=== PATIENT | male | born 1960 | race Caucasian/White ===

== ENCOUNTER → 2021-03-20 | Outpatient (CLI) | payer BC ==
[2021-03-20 10:26] LABS: Basophils # (A) 0.1 k/uL (0-0.2); Basophils % (A) 1 %; Eosinophils # (A) 0.1 k/uL (0-0.7); Eosinophils % (A) 2 %; HCT 42.1 % (39.0-53.0); HGB 14.4 gm/dL (13.0-17.5); Lymphocytes # (A) 1.8 k/uL (1.0-4.8); Lymphocytes % (A) 32 %; MCH 30.8 pg (25.0-35.0); MCHC 34.3 g/dL (31.0-37.0); Mean Platelet Volume 7.5; Monocytes # (A) 0.4 k/uL (0-1.0); Monocytes % (A) 8 %; Neutrophils # (A) 2.9 k/uL (1.3-7.7); Neutrophils % (A) 53 %; Platelet Count 219 k/uL (150-450); RBC 4.68 m/uL (4.30-5.90); RDW 13.7 % (11.5-15.5); WBC 5.4 k/uL (3.8-10.6)
[2021-03-20 10:33] LABS: INR 1.1 (<1.2); Prothrombin Time 11.2 sec (9.0-12.0)
[2021-03-20 11:07] LABS: Potassium 4.4 mmol/L (3.5-5.1)
--- NOTE | 2021-03-20 12:23 | XR ---
EXAMINATION TYPE: XR chest 2V DATE OF EXAM: 03/20/2021 COMPARISON: Chest x-ray 02/03/2012 HISTORY: Z01.818 TECHNIQUE: Frontal and lateral views of the chest are obtained. FINDINGS: There is no focal air space opacity, pleural effusion, or pneumothorax seen. The cardiac silhouette size is within normal limits. The osseous structures are intact. IMPRESSION: No acute cardiopulmonary process.
== END | disposition home or self-care (01) ==
LOC: LABPAT 09:35
PROVIDERS: ATTEND Orthopaedic Surgery
DX: Z01.812 Encounter for preprocedural laboratory examination (principal); Z22.322 Carrier or suspected carrier of Methicillin resistant Staphylococcus aureus; M17.11 Unilateral primary osteoarthritis, right knee
CPT/HCPCS: 71046; 80051; 85025; 85610; 87070; 93005

== ENCOUNTER → 2021-05-07 | Outpatient (CLI) | payer BC ==
[2021-05-07 23:04] LABS: HCT 40.7 % (39.6-50.0); HGB 13.7 g/dL (13.0-17.0); MCH 29.9 pg (27.0-32.0); MCHC 33.7 g/dL (32.0-37.0); MCV 88.9 fL (80.0-97.0); Mean Platelet Volume 10.7 fL (9.5-12.2); Platelet Count 212 X 10*3/uL (140-440); RBC 4.58 X 10*6/uL (4.40-5.60); WBC 6.08 X 10*3/uL (4.50-10.00)
[2021-05-07 23:56] LABS: African American GFR (CKD) 84.8 (60.0-200.0); Anion Gap 11.7 mmol/L (10.00-18.00); Blood Urea Nitrogen 19.5 mg/dL (9.0-27.0); Carbon Dioxide 26.3 mmol/L (20.0-27.5); Non-African American GFR(CKD) 73.2 (60.0-200.0); Potassium 4.7 mmol/L (3.5-5.5)
== END | disposition home or self-care (01) ==
LOC: LABPAT 15:25
PROVIDERS: ATTEND Internal Medicine Cardiovascular Disease
DX: Z01.812 Encounter for preprocedural laboratory examination (principal); Z20.822 Contact with and (suspected) exposure to COVID-19
CPT/HCPCS: 80051; 82565; 84520; 85027; U0003; C9803

== ENCOUNTER 2021-05-11 08:44 | Day surgery (SDC) | payer BC ==
[2021-05-05 16:04] VITALS: BMI 32.5
[~2021-05-11 08:44] MED LIST: ALPRAZolam 0.25 MG TAB PO PRN; ALPRAZolam 0.5 MG TAB PO PRN; ASPIRIN 325 MG TAB PO ONE; HEPARIN SODIUM,PORCINE 10,000 UNIT in SODIUM CHLORIDE 0.9% 1,000 ML IRRIGATION PRN; HEPARIN SODIUM,PORCINE 2,500 UNIT in SODIUM CHLORIDE 0.9% 250 ML IRRIGATION PRN; NITROGLYCERIN SL TABS 0.4 MG TAB SUBLINGUAL PRN; SODIUM CHLORIDE 0.9% 1,000 ML in EMPTY BAG 1 BAG IV SCH
[2021-05-11 09:03] VITALS: RESP 18; TEMP 97.3
[2021-05-11] MEDS ORDERED: LIDOCAINE 1% INJ 10MG/ML (20 ML MDV) ONE (10:15)
[2021-05-11] MEDS ORDERED: VERAPAMIL 2.5 MG/ML 2 ML AMP ONE (10:15)
[2021-05-11] MEDS ORDERED: fentaNYL (PF) 50 MCG/ML 2 ML AMP ONE (10:15)
[2021-05-11] MEDS ORDERED: fentaNYL (PF) 50 MCG/ML 2 ML AMP IVP ONE (10:35)
[2021-05-11] MEDS ORDERED: MIDAZOLAM 2 MG/2 ML VIAL IVP ONE (10:35)
[2021-05-11] MEDS ORDERED: LIDOCAINE 1% INJ 10MG/ML (20 ML MDV) SQ ONE (10:40)
[2021-05-11] MEDS ORDERED: VERAPAMIL SYRINGE (5 MG/10 ML) INTRAARTER ONE (10:43)
[2021-05-11] MEDS ORDERED: HEPARIN SODIUM 1,000 UN/ML (10ML VL) ONE (10:44)
[2021-05-11] MEDS ORDERED: HEPARIN SODIUM 1,000 UN/ML (10ML VL) IVP ONE (10:45)
[2021-05-11] MEDS ORDERED: IOPAMIDOL-370 125ML BTL INJ ONE (10:51)
[2021-05-11] MEDS ORDERED: RX INFO: IV CONTRAST WAS GIVEN 1 EACH MISC MISCELLANE PRN (11:20)
[2021-05-11] MEDS ORDERED: SODIUM CHLORIDE 0.9% 1,000 ML IV SCH (11:30)
--- NOTE | 2021-05-11 13:10 | CC ---
CARDIAC CATHETERIZATION REPORT INDICATION: New-onset dilated cardiomyopathy. PROCEDURE NOTE: After obtaining informed consent, left heart catheterization and coronary angiogram were performed via the right radial artery using size 3.5 Romel right and left coronary catheters and a pigtail catheter. Patient tolerated the procedure well without any obvious immediate complications. Right radial artery access was obtained using micropuncture technique. Catheters and wires were floated into the ascending aorta under fluoroscopic guidance. Patient received verapamil and intravenous heparin as per protocol. Patient received moderate conscious sedation. Total sedation time was 15 minutes. At the end of the procedure, a TR band was applied for hemostasis as per protocol. Adequate hemostasis and pulse ox were obtained. FINDINGS: HEMODYNAMICS: Left ventricular end-diastolic pressure is 16 mm. There is a gradient of 5 mm across the valve. LEFT VENTRICULOGRAM: Left ventriculogram was not performed. ANGIOGRAPHIC DATA: Left main coronary artery. Left main coronary artery is a normal-sized vessel and is free of stenosis. It divides into left anterior descending coronary artery and circumflex coronary artery. LAD and its branches, circumflex coronary artery and its branches are free of significant stenosis. Circumflex coronary artery is a codominant vessel. Right coronary artery. Right coronary artery is a codominant system and is free of significant disease. CONCLUSIONS: 1. Normal coronary arteries. 2. Mildly elevated left ventricular end-diastolic pressures. PLAN: Patient's management is going to be with optimal medical therapy. He is already on MIRZA inhibitors. I will add Toprol-XL 25 mg daily. MMODL / IJN: [id number] /
[2021-05-11 15:16] VITALS: BP 158/74; PULSE 74
== END 2021-05-11 15:10 | disposition home or self-care (01) ==
LOC: CATHCVL 08:44
PROVIDERS: ATTEND Internal Medicine Cardiovascular Disease
DX: I42.0 Dilated cardiomyopathy (principal)
CPT/HCPCS: 93458; C1894; J2250; J2001; J3010; J1644; Q9967

== ENCOUNTER → 2021-12-22 | Outpatient (CLI) | payer BC | END | disposition home or self-care (01) | LOC: LABPAT 10:11 | PROVIDERS: ATTEND Orthopaedic Surgery | DX: Z01.812 Encounter for preprocedural laboratory examination (principal); Z22.322 Carrier or suspected carrier of Methicillin resistant Staphylococcus aureus; M17.11 Unilateral primary osteoarthritis, right knee | CPT/HCPCS: 87070 ==

== ENCOUNTER 2022-01-21 08:21 | Observation (INO) | payer BC ==
--- NOTE | 2022-01-20 12:10 | P.HPOR ---
History of Present Illness H&P Date: 01/20/22 Chief Complaint: Right knee pain The patient is a 61-year-old male who presents with progressive right knee pain for the past several years worsening recently. He notes swelling, stiffness, and giving way. It is worse with weightbearing activities. He tried previous medications and injections with only partial temporary relief. He is having significant night symptoms. Review of Systems As per HPI Past Medical History Past Medical History: Asthma, COPD, Hyperlipidemia, Hypertension, Osteoarthritis (OA) Additional Past Medical History / Comment(s): Heart diseaseleft bundle branch block History of Any Multi-Drug Resistant Organisms: None Reported Past Surgical History: Heart Catheterization, Orthopedic Surgery Additional Past Surgical History / Comment(s): rt hand trigger thumb, rt carpal tunnel, lump removed from neck, ganglion cyst removed right foot Past Anesthesia/Blood Transfusion Reactions: No Reported Reaction Smoking Status: Former smoker - Past Family History Mother Family Medical History: No Reported History Medications and Allergies Home Medications Medication Instructions Recorded Confirmed Type Albuterol Inhaler [Ventolin 2 puff INHALATION Q6HR PRN 10/19/13 01/20/22 History Inhaler] Ipratropium/Albuterol Sulfate 3 ml INHALATION QID PRN 10/19/13 01/20/22 History [Duoneb 0.5 mg-3 mg/3 ml Soln] lisinopriL [Zestril] 10 mg PO HS 10/19/13 01/20/22 History EPINEPHrine [Epipen 2-Melchor] 0.3 mg IM ONCE PRN #1 ml 10/20/13 01/20/22 Rx Atorvastatin [Lipitor] 20 mg PO HS 04/07/21 01/20/22 History Desvenlafaxine Succinate [Pristiq] 100 mg PO DAILY 04/07/21 01/20/22 History QUEtiapine [SEROquel] 100 mg PO HS 04/07/21 01/20/22 History buPROPion HCL [Wellbutrin XL] 300 mg PO DAILY 04/07/21 01/20/22 History Allergies Allergy/AdvReac Type Severity Reaction Status Date / Time amlodipine besylate Allergy Unknown Verified 01/20/22 10:20 [From Master] budesonide [From Pulmicort] Allergy Unknown Verified 01/20/22 10:20 dyclonine HCl [From Sucrets] Allergy shortness Verified 01/20/22 10:20 of breath hexylresorcinol Allergy Unknown Verified 01/20/22 10:20 [From Sucrets] olmesartan medoxomil Allergy Unknown Verified 01/20/22 10:20 [From Master] penicillin V potassium Allergy Unknown Verified 01/20/22 10:20 [From Pen-Vee K] Childhood venom-honey bee Allergy Unknown Verified 01/20/22 10:20 [bee venom (honey bee)] Physical Examination - Knee right Appearance: effusion Effusion grade: grade 1 Varus alignment in stance: 5 degrees Tenderness with palpation: medial Pain: with flexion Gait: limping ROM: extension: -20 degrees ROM: flexion: 90 degrees Strength: extension: 5/5 Strength: flexion: 5/5 Meniscal tests: medial meniscal tests: positive Results The patient is a 61-year-old male who is well-developed and well-nourished, approximate 5 foot 8, 214 pounds of endomorphic habits. HEENT exam is nonfocal, neck is supple. He has painless passive motion of the right hip. Straight leg raise negative. His distal neurovascular appears intact in the right lower extremity. - Diagnostic results Knee x-ray: image reviewed (3 views of the right knee obtained in the office show severe medial and patellofemoral compartment narrowing with [id number] changes and subchondral sclerosis.) Assessment and Plan Assessment: Right knee severe medial and patellofemoral compartment osteoarthrosis Plan: I talked the patient length regarding his condition, treatment options. At this point is quite limited because of pain related to his right knee has significant pain related to his right knee osteoarthrosis despite conservative measures. After a thorough discussion he opted to proceed with surgery. We'll plan to proceed with right total knee arthroplasty. We will institute DVT prophylaxis postoperative. The patient underwent preoperative medical and cardiac clearance. Time with Patient: Less than 30
[~2022-01-21 08:21] MED LIST changes: +ACETAMINOPHEN TAB 500 MG TAB PO PRN; -ALPRAZolam 0.25 MG TAB PO PRN; -ALPRAZolam 0.5 MG TAB PO PRN; -ASPIRIN 325 MG TAB PO ONE; -HEPARIN SODIUM,PORCINE 10,000 UNIT in SODIUM CHLORIDE 0.9% 1,000 ML IRRIGATION PRN; -HEPARIN SODIUM,PORCINE 2,500 UNIT in SODIUM CHLORIDE 0.9% 250 ML IRRIGATION PRN; +MELOXICAM 7.5 MG TAB PO PRN; +MIDAZOLAM 2 MG/2 ML VIAL IV PRN; -NITROGLYCERIN SL TABS 0.4 MG TAB SUBLINGUAL PRN; +ONDANSETRON 4 MG/2 ML VIAL IVP ONE; +SCOPOLAMINE 1 MG/72 HR PATCH TRANSDERM ONE; -SODIUM CHLORIDE 0.9% 1,000 ML in EMPTY BAG 1 BAG IV SCH; +TRANEXAMIC ACID IN NACL,ISO-OS 1,000 MG in SALINE 1 100ML.BAG IVPB PRN
[2022-01-21] MEDS: LACTATED RINGERS 1,000 ML IV SCH (09:32)
[2022-01-21] MEDS ORDERED: DEXAMETHASONE SOD PHOSPHATE 4 MG/ML 1 ML VIAL IVP ONE (09:35)
[2022-01-21] MEDS ORDERED: SODIUM CHLORIDE 0.9% (PF) 10 ML VIAL ONE (10:35)
[2022-01-21] MEDS ORDERED: MIDAZOLAM 2 MG/2 ML VIAL ONE (10:35)
[2022-01-21] MEDS ORDERED: TRANEXAMIC ACID IN NACL,ISO-OS 1,000 MG/100 ML BAG ONE (10:35)
[2022-01-21] MEDS ORDERED: PROPOFOL 10 MG/ML 20 ML VIAL IV ONE (10:35)
[2022-01-21] MEDS ORDERED: ROPIVACAINE 5 MG/ML 30 ML VIAL ONE (10:35)
--- NOTE | 2022-01-21 11:20 | P.ANPRN ---
Procedure Note - Anesthesia - Nerve Block Performed Right Adductor Canal Infusion Time Out Performed: Yes (0945) Date of Procedure: 01/21/22 Procedure Start Time: 09:46 Procedure Stop Time: 09:51 Location of Patient: PreOp Indication: Acute Post-Operative Pain, Requested by Surgeon Specifically requested for management of pain by : Abelino Gil Sedation Type: Sedate with meaningful contact maintained Preparation: Sterile Prep, Sterile Dressing Position: Supine Catheter Depth at Skin (cm): 8 Catheter: Indwelling Needle Types: Jaclyn Needle Gauge: 18 Ultrasound used to visualize needle placement: Yes Ultrasound used to observe medication spread: Yes Injectate: 0.5% Ropivacaine (see comment for volume) (15cc + 5cc nacl pf) Blood Aspirated: No Pain Paresthesia on Injection Noted: No Resistance on Injection: Normal Image Stored and Saved: Yes Events: Uneventful and Well Tolerated
--- NOTE | 2022-01-21 11:21 | P.ANPRN ---
Procedure Note - Anesthesia - Nerve Block Performed Right iPack Single Time Out Performed: Yes (0945) Date of Procedure: 01/21/22 Procedure Start Time: 09:52 Procedure Stop Time: 09:55 Location of Patient: PreOp Indication: Acute Post-Operative Pain, Requested by Surgeon Specifically requested for management of pain by DrCelina: Abelino Gil Sedation Type: Sedate with meaningful contact maintained Preparation: Sterile Prep Position: Supine Catheter: None Needle Types: Pajunk Needle Gauge: 21 Ultrasound used to visualize needle placement: Yes Ultrasound used to observe medication spread: Yes Injectate: 0.5% Ropivacaine (see comment for volume) (15cc + 5cc nacl pf) Blood Aspirated: No Pain Paresthesia on Injection Noted: No Resistance on Injection: Normal Image Stored and Saved: Yes Events: Uneventful and Well Tolerated
[2022-01-21] MEDS ORDERED: ceFAZolin 1,000 MG in SODIUM CHLORIDE 0.9% 1,000 ML IRRIGATION ONE (11:25)
[2022-01-21] MEDS ORDERED: HYDROcodone/APAP 5-325MG 1 EACH TAB PO PRN (12:23)
[2022-01-21] MEDS ORDERED: NALOXONE 0.4 MG/ML 1 ML VIAL IV PRN (12:23)
[2022-01-21] MEDS ORDERED: HYDROmorphone 0.5 MG/0.5 ML SYRINGE IVP PRN (12:23)
--- NOTE | 2022-01-21 12:42 | P.OP ---
Date of Procedure: 01/21/22 Preoperative Diagnosis: Right knee severe tricompartmental osteoarthrosis Postoperative Diagnosis: Same Procedure(s) Performed: Right total knee arthroplastycementedcruciate retaining Implants: Depuy Attune size 7 cemented femoral component, size 6 cemented tibial component, 9 mm articular surface, 38 mm cemented patellar component. This is a cruciate retaining implant. Anesthesia: regional, spinal Surgeon: Abelino Gil Square Dance Caller #1: Tyrese Minaya Estimated Blood Loss (ml): 50 Pathology: other (Bone fragments) Condition: stable Disposition: PACU Indications for Procedure: The patient is a 61-year-old male presents with progressive right knee pain secondary to osteoarthrosis despite conservative measures. A discussion of the risks and benefits of operative intervention versus continued conservative measures was made with the patient. He opted to proceed with surgery. Operative risks to include infection, neurovascular injury, development of blood clots, fracture, possible component loosening/failure need for subsequent procedures was discussed. Informed consent was obtained. Operative Findings: As below Description of Procedure: The patient was brought to the operating room, and after induction of spinal anesthesia the right lower extremity was prepped and draped in a normal fashion. The tourniquet was inflated to 270 mmHg. A longitudinal incision extending 3 finger breaths above the superior pole of the patella extending to the medial aspect the tibial tubercle was then made. The skin and subcutaneous tissues were divided sharply. Electrocautery was used for hemostasis. A medial parapatellar arthrotomy was then performed. The medial soft tissues to include the superficial and deep portions of the medial collateral ligament as well as the medial hamstring tendons were elevated subperiosteally. The proximal medial tibia osteophytes were carefully removed. The patella was everted. The knee was flexed. A portion of the retropatellar fat pad was excised sharply. The anterior cruciate ligament was sacrificed. A starting hole was made in the distal femur 1 cm anterior to the posterior cruciate origin. An intramedullary femoral guide was gently inserted planning on 5 valgus distal cut with 9 mm distal resection. The cutting block was pinned in place. The distal cut was then made. The posterior referencing sizing guide was utilized. 3 of external rotation was built into the system and verified off the trans- epicondylar axis and the posterior condyles. I felt size 7 was most appropriate. The cutting block was pinned in place. The anterior, posterior, and chamfer cuts were then made. The bone fragments were removed. A sulcus cut was then made with the appropriate guide. The trial size 7 femoral component was then placed and was fully seated. There was good anterior to posterior and medial to lateral fit. The distal peg holes were then drilled. The trial component was then removed. Attention was then paid towards preparing the proximal tibia. An extra medullary guide was utilized in line with the tibial shaft and second metatarsal distally. A 7 posterior slope was planned. I planned on 2 mm resection from the medial compartment. The cutting block was pinned in place. The proximal tibial cut was then made. The bone was removed in one fragment. The remnants of the medial and lateral menisci were excised the capsule junction with electrocautery. The tibia sized most appropriately at size 6. The posterior osteophytes off the distal femur were carefully removed with a curved osteotome. The trial tibial and femoral components were placed along with a 9 millimeters articular surface. I was able to obtain full flexion and extension with good stability with varus and valgus stress. After several flexion and extension cycles, the tibial rotation was marked with electrocautery in line with the medial one third of the tibial tubercle. Attention was then paid towards preparing the patella. A patella reamer was utilized taking this down to 14 mm of bone stock. A good flush cut was made. The patella sized most appropriately at 38 millimeters. The peg holes were then drilled. The trial component was placed. The knee was taken through a range of motion. I had good patellofemoral tracking with no hands technique. The trial components were then removed. The tibia was prepared in the appropriate rotation with appropriate drill and keel punch. The flexion and extension gaps were checked and felt to be symmetric. The posterior soft tissues were injected with ropivacaine. The bony surfaces were prepared with pulsatile lavage and dried. The deep tibial component was then cemented in place and was fully seated. Excess cement was removed. The femoral component was cemented in place and was fully seated. Again excess cement was removed. The trial 9 millimeters surface was then inserted in the knee was put in full extension. The patella component was cemented in place. After the cement had sufficiently hardened, the knee was again taken through a range of motion. Again there was good stability in flexion and extension with varus and valgus stress. The trial articular surface was then removed. The final articular surface was placed and was impacted. Care was taken to avoid any soft tissue interposition. Pulsatile lavage was again utilized. The tourniquet was deflated with approximately 60 minutes total tourniquet time. There was minimal drainage therefore a deep drain was not placed. The medial parapatellar arthrotomy was then closed with #2 Ethibond suture. The subcutaneous tissues were reapproximated interrupted 2-0 Vicryl sutures. The skin was reapproximated with 3-0 subarticular strata fix suture. Skin tape and adhesive was applied. A sterile dressing was applied. The patient was then awoken from sedation and transferred to recovery room in good condition. Blood loss was estimated at 50 milliliters. No complications were incurred. Sponge and needle counts were correct at the end the case. Tyrese ELIZABETH assisted during the major components this case to include exposure, bone resection, and implantation.
[2022-01-21] MEDS ORDERED: ROPIVACAINE 1,100 MG, SODIUM CHLORIDE 0.9% 500 ML 330 ML, EMPTY PAIN BALL 1 EACH MISCELLANE PRN ×2 (12:55)
--- NOTE | 2022-01-21 13:27 | XR ---
Right knee Limited HISTORY: Status post right knee arthroplasty 2 views the right knee, correlation to prior right knee 12/22/2021 Bone mineralization is reduced. Patient is status post right knee arthroplasty. There is anatomic ali gnment. Lucencies present within the soft tissues. There is soft tissue swelling. Prepatellar calcifi c density is again noted. Enthesophyte at insertion of the quadriceps tendon is stable. IMPRESSION: Orthopedic follow-up.
[2022-01-21] MEDS: HYDROmorphone 0.5 MG/0.5 ML SYRINGE IVP PRN ×4 (14:10→16:03)
[2022-01-21] MEDS ORDERED: LACTATED RINGERS 1,000 ML IV ONE ×2 (15:00)
[2022-01-21] MEDS: HYDROcodone/APAP 7.5-325MG 1 EACH TAB PO PRN (16:44)
[2022-01-21] MEDS: HYDROmorphone 1 MG/ML 1 ML SYRINGE IVP PRN ×2 (17:46→20:32)
[2022-01-21] MEDS ORDERED: ONDANSETRON 4 MG/2 ML VIAL IVP STA (20:38)
[2022-01-21] MEDS ORDERED: SENNOSIDES-DOCUSATE SODIUM 1 EACH TAB PO SCH (21:00)
[2022-01-21 22:03] VITALS: RESP 16
[2022-01-21] MEDS ORDERED: IPRATROPIUM-ALBUTEROL 3 ML NEB INHALATION PRN (22:34)
--- NOTE | 2022-01-21 22:35 | P.CONS ---
History of Present Illness - Reason for Consult Consult date: 01/21/22 - History of Present Illness The patient is a 61-year-old male with a PMH of COPD, hypertension, hyperlipidemia, and osteoarthritis who was admitted for an elective right total knee replacement. The patient underwent the procedure earlier today with no immediate postoperative consultations. The patient was seen at the bedside on the surgical unit. He reported good control of his pain, rated at a 3 out of 10 at the time of interview. He denied any additional complaints. Reports that he has not gotten out of bed as of yet and has not had a bowel movement or passed status. Did report an episode of nausea which was alleviated with Zofran. Denies experiencing chest discomfort, sore throat, shortness of breath, fever, chills, cough. Reports compliance with his medications at home. Review of systems: Pertinent positives and negatives as discussed in HPI, a complete review of systems was performed and all other systems are negative. Physical examination: General: non toxic, no distress, appears at stated age, obese Derm: no unusual rashes/lesions, warm Head: atraumatic, normocephalic, symmetric Eyes: EOMI, no lid lag, anicteric sclera, pupils equal round reactive to light ENT: Nose and ears atraumatic Neck: No cervical lymphadenopathy, trachea midline, supple Mouth: no lip lesion, mucus membranes moist Cardiovascular: S1S2 reg, no murmur, positive dorsalis pedis pulse bilateral, no edema Lungs: CTA bilateral, no rhonchi, no rales, no accessory muscle use Abdominal: soft, nontender to palpation, no guarding Ext: muscle strength 5 out of 5 in all extremities grossly except right lower extremity due to pain, right lower extremity Shiv bandage in place, no gross muscle atrophy, no contractures, Neuro: CN II-XI grossly intact, no gross focal neuro deficits Psych: Alert, oriented, appropriate affect Assessment/plan Chronic conditions: COPD, hypertension, hyperlipidemia -Continue with home medications Status post right total knee replacement -Defer management including pain control and DVT prophylaxis to the primary surgery service We appreciate this opportunity to be involved in this patient's care. We will follow the patient with you. For any further questions, please not hesitate to contact the sound inpatient team. Past Medical History Past Medical History: Asthma, COPD, Hyperlipidemia, Hypertension, Osteoarthritis (OA) Additional Past Medical History / Comment(s): Heart diseaseleft bundle branch block History of Any Multi-Drug Resistant Organisms: None Reported Past Surgical History: Heart Catheterization, Orthopedic Surgery Additional Past Surgical History / Comment(s): rt hand trigger thumb, rt carpal tunnel, lump removed from neck, ganglion cyst removed right foot Past Anesthesia/Blood Transfusion Reactions: No Reported Reaction Past Psychological History: Depression Smoking Status: Former smoker Past Alcohol Use History: Occasional Additional Past Alcohol Use History / Comment(s): quit smoking 10 years ago, 1ppd, started in teens Past Drug Use History: None Reported - Past Family History Mother Family Medical History: Hyperlipidemia Medications and Allergies Home Medications Medication Instructions Recorded Confirmed Type Albuterol Inhaler [Ventolin 2 puff INHALATION Q6HR PRN 10/19/13 01/21/22 History Inhaler] Ipratropium/Albuterol Sulfate 3 ml INHALATION QID PRN 10/19/13 01/21/22 History [Duoneb 0.5 mg-3 mg/3 ml Soln] lisinopriL [Zestril] 10 mg PO HS 10/19/13 01/21/22 History EPINEPHrine [Epipen 2-Melchor] 0.3 mg IM ONCE PRN #1 ml 10/20/13 01/21/22 Rx Atorvastatin [Lipitor] 20 mg PO HS 04/07/21 01/21/22 History Desvenlafaxine Succinate [Pristiq] 100 mg PO DAILY 04/07/21 01/21/22 History QUEtiapine [SEROquel] 100 mg PO HS 04/07/21 01/21/22 History buPROPion HCL [Wellbutrin XL] 300 mg PO DAILY 04/07/21 01/21/22 History Allergies Allergy/AdvReac Type Severity Reaction Status Date / Time amlodipine besylate Allergy Unknown Verified 01/21/22 08:54 [From Master] budesonide [From Pulmicort] Allergy Unknown Verified 01/21/22 08:54 dyclonine HCl [From Sucrets] Allergy shortness Verified 01/21/22 08:54 of breath hexylresorcinol Allergy Unknown Verified 01/21/22 08:54 [From Sucrets] olmesartan medoxomil Allergy Unknown Verified 01/21/22 08:54 [From Master] penicillin V potassium Allergy Unknown Verified 01/21/22 08:54 [From Pen-Vee K] Childhood venom-honey bee Allergy Unknown Verified 01/21/22 08:54 [bee venom (honey bee)] Physical Exam Vitals: Vital Signs Temp Pulse Pulse Pulse Resp BP BP 01/21/22 18:14 88 163/80 01/21/22 17:19 97.5 F L 97 17 182/95 01/21/22 16:55 72 16 165/84 01/21/22 16:40 92 18 185/85 01/21/22 16:00 77 16 149/90 01/21/22 15:30 75 16 149/104 01/21/22 15:00 72 16 162/78 01/21/22 14:30 77 18 161/77 01/21/22 14:00 78 20 164/76 01/21/22 13:30 61 16 156/83 01/21/22 13:15 60 12 147/84 01/21/22 13:00 75 16 147/81 01/21/22 12:42 96.8 F L 65 14 142/91 01/21/22 10:00 76 16 136/71 01/21/22 09:32 97.4 F L 87 16 174/91 Pulse Ox 01/21/22 18:14 01/21/22 17:19 95 01/21/22 16:55 96 01/21/22 16:40 98 01/21/22 16:00 97 01/21/22 15:30 95 01/21/22 15:00 95 01/21/22 14:30 98 01/21/22 14:00 99 01/21/22 13:30 99 01/21/22 13:15 98 01/21/22 13:00 99 01/21/22 12:42 100 01/21/22 10:00 98 01/21/22 09:32 98 Intake and Output 01/21/22 01/21/22 01/21/22 06:59 14:59 22:59 Intake Total 851 350 Output Total 50 400 Balance 801 -50 Intake: IV 851 350 Output: Urine 400 Estimated Blood Loss 50 Other: # Voids 1 Weight 94.6 kg 94.6 kg
[2022-01-22] MEDS: HYDROmorphone 1 MG/ML 1 ML SYRINGE IVP PRN ×2 (00:42→10:41)
[2022-01-22] MEDS: LACTATED RINGERS 1,000 ML IV SCH (07:52)
[2022-01-22] MEDS: HYDROcodone/APAP 7.5-325MG 1 EACH TAB PO PRN (07:56)
[2022-01-22 08:30] VITALS: BP 166/91; TEMP 98.6
[2022-01-22 08:54] LABS: HCT 38.4 % (39.6-50.0); MCH 30.1 pg (27.0-32.0); MCHC 33.9 g/dL (32.0-37.0); MCV 88.9 fL (80.0-97.0); Mean Platelet Volume 10.3 fL (9.5-12.2); NRBC Per 100 WBC 0 /100 WBCS (0.0-0.0); Platelet Count 253 X 10*3/uL (140-440); RBC 4.32 X 10*6/uL (4.40-5.60); RDW 13.3 % (11.5-14.5); WBC 13.99 X 10*3/uL (4.50-10.00)
--- NOTE | 2022-01-22 08:57 | P.PN ---
Subjective Progress Note Date: 01/22/22 Principal diagnosis: Right knee osteoarthritis Patient was seen at bedside this morning resting comfortably in bed. Patient says he has not worked with physical therapy yet today. Patient says he would like to go home today and has his at home that can help him out. Patient says he does have a walker for home. Patient says he does have pain mostly located at the front and back of the knee currently. Patient denies radiation of pain. Patient says he has urinated several times since surgery yesterday. Patient says he has not had bowel movement yet, however, patient says he has been passing gas. Patient denies chest pain, fever, chest breath, nausea, vomiting, change in vision, loss of bowel/bladder control. Objective - Vital Signs Vital signs: Vital Signs Temp 98.6 F 01/22/22 08:00 Pulse 80 01/22/22 08:00 Resp 16 01/22/22 08:00 BP 166/91 01/22/22 08:00 Pulse Ox 97 01/22/22 08:00 FiO2 Intake & Output 01/21/22 01/22/22 01/22/22 18:59 06:59 18:59 Intake Total 1201 Output Total 450 700 Balance 751 -700 Weight 94.6 kg Intake: IV 1201 Output: Urine 400 700 Estimated Blood Loss 50 Other: # Voids 1 1 - Exam Right knee: Incision is clean, dry, and intact. The exofin fusion tape is in good condition. There is minimal soft tissue swelling and ecchymosis surrounding the medial and lateral aspects of the incision. Calf is soft, no tenderness with palpation. Plantar flexion, dorsiflexion, EHL, FHL are intact. Sensory exam to light touch throughout the extremity is intact, dorsal pedis pulses 2+. Assessment and Plan Assessment: 1. Right knee osteoarthritis - Postoperative day 1 status post right total knee arthroplasty Plan: 1. Right knee osteoarthritis - right total knee arthroplasty from yesterday, 01/21/2022. Patient stable at bedside this morning. Patient does have a walker at home. Discharge home with health services today pending labs and physical therapy evaluation 2. Appreciate medical management 3. Pain management - [place]; IV meds only as necessary 4. DVT prophylaxis - Xarelto in hospital. Eliquis 2.5 mg BID x 2 weeks 5. GI prophylaxis - senna 6. PT/OT - weightbearing as tolerated with walker 7. Encourage incentive spirometer use 8. Discharge planning - home with health services today. Time with Patient: Less than 30
[2022-01-22] MEDS ORDERED: buPROPion XL 300 MG TAB.ER.24H PO SCH (09:00)
[2022-01-22] MEDS ORDERED: RIVAROXABAN 10 MG TAB PO SCH (09:00)
--- NOTE | 2022-01-22 09:01 | P.DS ---
Providers Date of admission: 01/22/22 05:17 Expected date of discharge: 01/22/22 Attending physician: Abelino Gil Consults: 01/21/22 12:57 Consult Physician Routine Consulting Provider: Conchita Coronel Consult Reason/Comments: Medical Management s/p RTKA Do you want consulting provider notified?: Yes Primary care physician: [facility] Course: Date of admission: 01/21/2022 Date of discharge: 01/22/2022 Admission diagnosis: Right knee osteoarthritis Discharge diagnosis: Same Attending physician: Dr. Gil Surgical procedures: Right total knee arthroplasty Brief history: Patient is a 61-year-old male with a history of progressive primary right knee osteoarthritis. At this point patient has failed conservative treatment measures and has opted to proceed with a elective right total knee arthroplasty. Hospital course: Details of patient's surgery can be found in operative report. Patient tolerated the procedure well and was subsequently transported to orthopedic floor. Patient's orthopeidc and medical care was provided daily. Patient had daily laboratory tests performed for evaluation of overall blood counts. Patient had daily physical therapy to include strengthening range of motion as well as education with walker ambulation. Patient was treated with Xarelto for their postoperative DVT prophylaxis during their inpatient stay. Patient was noted to have a relatively uneventful postoperative course. Patient reported satisfactory pain control with oral pain medications by postoperative day 1. Patient showed satisfactory progress with physical therapy. Patient moved steadily through the program and had no difficulty meeting the goals by postoperative day 1. Given patient's otherwise satisfactory course and having met physical therapy goals, plan is to discharge patient home with health services on postoperative day 1. Discharge condition/disposition: Patient will be discharged home with health services in stable condition. Discharge medications: Instructions are given on resumption of patient's normal daily medications per primary care recommendation, in addition patient will be prescribed Macfarlan; Colace; Eliquis 2.5 mg BID x 2 weeks. Discharge instructions: 1. Wound care and infection precautions, keep incision dry and covered while showering, no lotions, creams, moisturizers. No soaking, tubs, pools, hottubs. Do not scrub over the incision. 2. Weight-bear as tolerated with walker / cane until follow-up. 3. Ice and elevate when necessary. Do not exceed 20 minutes per hour with ice pack. 4. Utilize compression sleeve until seen at first follow up appointment. 5. Visiting nursing care. 6. Home physical therapy including home CPM. 7. Pain meds and anticoagulants per prescription. 8. Pain medication has potential to cause constipation. Increase oral fluid and fiber intake. Contact primary care provider if you have not had a bowel movement within 48 hours after discharge 9. No anti-inflammatory medication until discussed at first post operative visit, this including Motrin, Aleve, Mobic, Diclofenac. 10. Follow up in office at 2 weeks postop with Orlando Villafuerte PA-C / Tyrese Minaya PA-C 11. Follow up with your primary care doctor 7-10 days after discharge. 12. Contact [facility] with any questions, . Keep incision clean, dry, intact. While showering, cover fusion tape with Saran wrap. Keep fusion tape on until follow-up appointment in office in 2 weeks Medications: Macfarlan; Colace; Eliquis 2.5 mg BID x 2 weeks. Assessment: Right knee osteoarthritis Procedures: Right total knee arthroplasty Patient Condition at Discharge: Good Plan - Discharge Summary Discharge Rx Participant: No New Discharge Prescriptions: New Docusate [Colace] 100 mg PO DAILY #30 capsule Apixaban [Eliquis] 2.5 mg PO BID #60 tab HYDROcodone/APAP 7.5-325MG [[place] 7.5] 1 - 2 each PO Q6HR PRN #36 tab PRN Reason: Pain No Action Albuterol Inhaler [Ventolin Inhaler] 2 puff INHALATION Q6HR PRN PRN Reason: Shortness Of Breath lisinopriL [Zestril] 10 mg PO HS Ipratropium/Albuterol Sulfate [Duoneb 0.5 mg-3 mg/3 ml Soln] 3 ml INHALATION QID PRN PRN Reason: Dyspnea EPINEPHrine [Epipen 2-Melchor] 0.3 mg IM ONCE PRN #1 ml PRN Reason: Anaphylaxis Desvenlafaxine Succinate [Pristiq] 100 mg PO DAILY QUEtiapine [SEROquel] 100 mg PO HS Atorvastatin [Lipitor] 20 mg PO HS buPROPion HCL [Wellbutrin XL] 300 mg PO DAILY Discharge Medication List Albuterol Inhaler [Ventolin Inhaler] 2 puff INHALATION Q6HR PRN 10/19/13 [History] Ipratropium/Albuterol Sulfate [Duoneb 0.5 mg-3 mg/3 ml Soln] 3 ml INHALATION QID PRN 10/19/13 [History] lisinopriL [Zestril] 10 mg PO HS 10/19/13 [History] EPINEPHrine [Epipen 2-Melchor] 0.3 mg IM ONCE PRN #1 ml 10/20/13 [Rx] Atorvastatin [Lipitor] 20 mg PO HS 04/07/21 [History] Desvenlafaxine Succinate [Pristiq] 100 mg PO DAILY 04/07/21 [History] QUEtiapine [SEROquel] 100 mg PO HS 04/07/21 [History] buPROPion HCL [Wellbutrin XL] 300 mg PO DAILY 04/07/21 [History] Apixaban [Eliquis] 2.5 mg PO BID #60 tab 01/22/22 [Rx] Docusate [Colace] 100 mg PO DAILY #30 capsule 01/22/22 [Rx] HYDROcodone/APAP 7.5-325MG [[place] 7.5] 1 - 2 each PO Q6HR PRN #36 tab 01/22/22 [Rx] Follow up Appointment(s)/Referral(s): Tyrese Minaya PAC [PHYSICIAN SPEED BELT SANDER] - 2 Weeks Patient Instructions/Handouts: Knee Replacement (DC) Activity/Diet/Wound Care/Special Instructions: Discharge instructions: 1. Wound care and infection precautions, keep incision dry and covered while showering, no lotions, creams, moisturizers. No soaking, tubs, pools, hottubs. Do not scrub over the incision. 2. Weight-bear as tolerated with walker / cane until follow-up. 3. Ice and elevate when necessary. Do not exceed 20 minutes per hour with ice pack. 4. Utilize compression sleeve until seen at first follow up appointment. 5. Visiting nursing care. 6. Home physical therapy including home CPM. 7. Pain meds and anticoagulants per prescription. 8. Pain medication has potential to cause constipation. Increase oral fluid and fiber intake. Contact primary care provider if you have not had a bowel movement within 48 hours after discharge 9. No anti-inflammatory medication until discussed at first post operative visit, this including Motrin, Aleve, Mobic, Diclofenac. 10. Follow up in office at 2 weeks postop with Orlando Villafuerte PA-C / Tyrese Minaya PA-C 11. Follow up with your primary care doctor 7-10 days after discharge. 12. Contact [facility] with any questions, . Keep incision clean, dry, intact. While showering, cover fusion tape with Saran wrap. Keep fusion tape on until follow-up appointment in office in 2 weeks Medications: Macfarlan; Colace; Eliquis 2.5 mg BID x 2 weeks. Discharge Disposition: HOME WITH HOME HEALTH SERVICES
[2022-01-22 09:37] VITALS: PULSE 78
[2022-01-22 09:46] LABS: Basophils # (A) 0.03 X 10*3/uL (0.00-0.10); Basophils % (A) 0.2 %; Eosinophils # (A) 0 X 10*3/uL (0.04-0.35); Eosinophils % (A) 0 %; Immature Grans, Automated 0.7 %; Lymphocytes % (A) 9.3 %; Monocytes % (A) 12.2 %; Neutrophils # (A) 10.86 X 10*3/uL (1.80-7.70); Neutrophils % (A) 77.6 %
--- NOTE | 2022-01-22 10:29 | P.PN ---
Progress Note - Text Progress Note Date: 01/22/22 (0619) Anesthesiology Postop day 1 status post total knee arthroplasty with adductor canal catheter. Patient doing well. VAS 8 out of 10rest able and tolerable. Gross strength intact in lower extremity. Denies fever. Denies alterations in sensorium. Catheter site intact. Heart regular rate Lungs nonlabored Abdomen nondistended Assessment: Postop day 1 status post total knee arthroplasty with adductor canal catheter Plan: All questions answered. Maintain catheter 2 more days with patient removal at home. Instructions were given at discharge.
[2022-01-22] MEDS ORDERED: HYDROcodone/APAP 7.5-325MG 1 EACH TAB PO PRN (10:51)
--- NOTE | 2022-01-22 11:42 | P.PN ---
Subjective Progress Note Date: 01/22/22 Principal diagnosis: s/p knee replacement Hospital Course: 61-year-old male with a PMH of COPD, hypertension, hyperlipidemia, and osteoarthritis who was admitted for an elective right total knee replacement. The patient underwent the procedure yesterday with no immediate postoperative consultations. Working with physical therapy. Progressing well. Subjective: Patient seen and examined at bedside. No acute events overnight. Patient felt a little sad about not being able to fully walk. However, he does state that he will slowly regain back his function. He denies any chest pain, shortness of breath, abdominal pain, urinary or bowel complaints. Pertinent positives and negatives as discussed above, a complete review of systems was performed and all other systems are negative. Vitals Signs Reviewed. General: nontoxic, no distress, appears at stated age Derm: warm, dry, dressing over right knee appears clean, dry, intact Head: atraumatic, normocephalic, symmetric Eyes: EOMI, no lid lag, anicteric sclera Mouth: no lip lesion, mucus membranes moist Cardiovascular: S1S2 reg, no murmur Lungs: CTA bilateral, no rhonchi, no rales , no accessory muscle use Abdominal: soft, nontender to palpation, no guarding, no appreciable organomegaly Ext: no gross muscle atrophy, no edema, no contractures, abductor canal pain catheter present on the right knee Neuro: CN II-XI grossly intact, no focal neuro deficits Psych: Alert, oriented, appropriate affect Assessment and Plan: Status post right total knee replacement - DVT prophylaxis and pain management per orthopedics -Anticipate discharge home today Chronic medical conditions: Hypertension COPD Dyslipidemia Depression -Continue home medications -Medically optimized for discharge Thank you for allowing us to participate in the care of this pleasant patient. Do not hesitate to contact us with questions. Someone can be reached from the [facility] hospitalist group all hours of the day at [phone] or via [email or web address]. Objective - Vital Signs Vital signs: Vital Signs Temp 98.6 F 01/22/22 08:00 Pulse 78 01/22/22 09:42 Resp 16 01/22/22 08:00 BP 166/91 01/22/22 08:00 Pulse Ox 97 01/22/22 08:00 FiO2 Intake & Output 01/21/22 01/22/22 01/22/22 18:59 06:59 18:59 Intake Total 1201 Output Total 450 700 Balance 751 -700 Weight 94.6 kg Intake: IV 1201 Output: Urine 400 700 Estimated Blood Loss 50 Other: # Voids 1 1 - Labs CBC & Chem 7: 01/22/22 05:40 Labs: Abnormal Lab Results - Last 24 Hours (Table) 01/22/22 Range/Units 05:40 WBC 13.99 H (4.50-10.00) X 10*3/uL RBC 4.32 L (4.40-5.60) X 10*6/uL Hct 38.4 L (39.6-50.0) % Immature Gran # 0.10 H (0.00-0.04) X 10*3/uL Neutrophils # 10.86 H (1.80-7.70) X 10*3/uL Monocytes # 1.70 H (0.20-1.00) X 10*3/uL Eosinophils # 0 L (0.04-0.35) X 10*3/uL
[2022-01-22] MEDS ORDERED: QUEtiapine 100 MG TAB PO SCH (21:00)
[2022-01-22] MEDS ORDERED: ATORVASTATIN 20 MG TAB PO SCH (21:00)
[2022-01-22] MEDS ORDERED: lisinopriL 10 MG TAB PO SCH (21:00)
== END 2022-01-22 15:16 | disposition home health service (06) ==
LOC: OR 08:21 → 4SSUR 16:52 → OR 01-22 05:17
PROVIDERS: ADMIT Orthopaedic Surgery; ATTEND Orthopaedic Surgery
DX: M17.11 Unilateral primary osteoarthritis, right knee (principal); J44.9 Chronic obstructive pulmonary disease, unspecified; E78.5 Hyperlipidemia, unspecified; R11.2 Nausea with vomiting, unspecified; I10 Essential (primary) hypertension; F32.A Depression, unspecified; I44.7 Left bundle-branch block, unspecified; Z98.890 Other specified postprocedural states; Z87.891 Personal history of nicotine dependence; Z79.899 Other long term (current) drug therapy; Z91.030 Bee allergy status; Z88.0 Allergy status to penicillin; Z91.09 Other allergy status, other than to drugs and biological substances
CPT/HCPCS: 94640; 97162; 64999; 64448; 76942; 85025; 88300; 73560; 27447; G0378; C1713 ×2; C1776; J2250; J1100; J0690 ×3; J2405; J1170 ×3; J2795; J2704

== ENCOUNTER 2023-11-21 12:44 | Emergency (ER) | payer MEDICARE ==
[2023-11-21] MEDS ORDERED: dexAMETHasone 4 MG TAB ONE (13:06)
[2023-11-21] MEDS ORDERED: HYDROmorphone 1 MG/ML 1 ML SYRINGE ONE (13:06)
[2023-11-21] MEDS ORDERED: IBUPROFEN 800 MG TAB ONE (13:07)
[2023-11-21] MEDS ORDERED: ACETAMINOPHEN TAB 500 MG TAB ONE (13:07)
[2023-11-21] MEDS ORDERED: LIDOCAINE 4% PATCH TOPICAL ONE (13:07)
[2023-11-21] MEDS ORDERED: traMADol 50 MG STARTER PACK 3 TAB BTL ONE (14:42)
[2023-11-21] MEDS ORDERED: IBUPROFEN 600 MG STARTER PACK 4 TAB BTL ONE (14:42)
== END 2023-11-21 14:47 | disposition home or self-care (01) ==
LOC: EC 12:44
DX: M54.16 Radiculopathy, lumbar region (principal)
CPT/HCPCS: 96372; 99283

== ENCOUNTER 2023-12-02 02:11 | Inpatient (IN) | payer BC, MEDICARE ==
[~2023-12-02 02:11] MED LIST changes: -ACETAMINOPHEN TAB 500 MG TAB PO PRN; +HYDROmorphone 0.5 MG/0.5 ML SYRINGE ONE; -MELOXICAM 7.5 MG TAB PO PRN; -MIDAZOLAM 2 MG/2 ML VIAL IV PRN; -ONDANSETRON 4 MG/2 ML VIAL IVP ONE; -SCOPOLAMINE 1 MG/72 HR PATCH TRANSDERM ONE; -TRANEXAMIC ACID IN NACL,ISO-OS 1,000 MG in SALINE 1 100ML.BAG IVPB PRN
[2023-12-02] MEDS ORDERED: HYDROmorphone 0.5 MG/0.5 ML SYRINGE ONE ×6 (04:34→23:35)
[2023-12-02] MEDS ORDERED: KETOROLAC 15 MG/ML 1 ML VIAL ONE ×2 (05:34→20:59)
[2023-12-02] MEDS ORDERED: ENOXAPARIN 40 MG/0.4 ML SYRINGE SQ ONE (07:51)
[2023-12-02] MEDS ORDERED: metroNIDAZOLE-NS PMX 100 ML ONE (07:51)
[2023-12-02] MEDS ORDERED: NALOXONE 0.4 MG/ML 1 ML VIAL IV PRN (19:24)
[2023-12-02] MEDS ORDERED: ONDANSETRON 4 MG/2 ML VIAL IVP PRN (23:43)
[2023-12-02] MEDS ORDERED: ACETAMINOPHEN TAB 325 MG TAB PO PRN (23:43)
[2023-12-02] MEDS ORDERED: ALBUTEROL NEBULIZED 2.5 MG/3 ML INHALATION PRN (23:48)
[2023-12-02] MEDS ORDERED: LORazepam 2 MG/ML INJ IV PRN (23:48)
[2023-12-02] MEDS ORDERED: CIPROFLOXACIN ONE (23:59)
[2023-12-02] MEDS ORDERED: DEXTROSE ONE (23:59)
[2023-12-02] MEDS ORDERED: metroNIDAZOLE-NS PMX 500 MG/100 ML BAG ONE (23:59)
[2023-12-02] MEDS ORDERED: SODIUM CHLORIDE 0.9% 1,000 ML BAG ONE (23:59)
[2023-12-03 04:42] LABS: Basophils % (A) 0 %; Eosinophils # (A) 0.1 k/uL (0-0.7); Eosinophils % (A) 2 %; HCT 37.2 % (39.0-53.0); HGB 12.5 gm/dL (13.0-17.5); Lymphocytes # (A) 1.6 k/uL (1.0-4.8); Lymphocytes % (A) 27 %; MCH 30.7 pg (25.0-35.0); MCHC 33.5 g/dL (31.0-37.0); MCV 91.7 fL (80.0-100.0); Mean Platelet Volume 7.3; Monocytes # (A) 0.5 k/uL (0-1.0); Monocytes % (A) 7 %; Neutrophils # (A) 3.8 k/uL (1.3-7.7); Neutrophils % (A) 62 %; Platelet Count 166 k/uL (150-450); RBC 4.05 m/uL (4.30-5.90); RDW 12.9 % (11.5-15.5); WBC 6.1 k/uL (3.8-10.6)
[2023-12-03 04:49] LABS: ALT 26 U/L (4-49); AST 26 U/L (17-59); African American GFR (CKD) >90 (>60 ml/min/1.73 sqM); Albumin 3.2 g/dL (3.5-5.0); Albumin/Globulin Ratio 1.5; Alkaline Phosphatase 74 U/L (38-126); Anion Gap 2 mmol/L; Blood Urea Nitrogen 20 mg/dL (9-20); Carbon Dioxide 25 mmol/L (22-30); Chloride 105 mmol/L (98-107); Globulin 2.2 g/dL; Glucose 66 mg/dL (74-99); Magnesium 2.1 mg/dL (1.6-2.3); Non-African American GFR(CKD) >90 (>60 ml/min/1.73 sqM); Potassium 4.1 mmol/L (3.5-5.1); Sodium 132 mmol/L (137-145); Total Protein 5.4 g/dL (6.3-8.2)
[2023-12-03] MEDS: metroNIDAZOLE-NS PMX 500 MG in SALINE 1 100ML.BAG IVPB SCH (04:57)
[2023-12-03] MEDS: SODIUM CHLORIDE 0.9% 1,000 ML IV SCH (04:57)
[2023-12-03 04:58] VITALS: RESP 17
[2023-12-03] MEDS: HYDROmorphone 0.5 MG/0.5 ML SYRINGE IVP PRN (05:02)
[2023-12-03 06:18] LABS: Glucose,Whole Blood 73 mg/dL (70-110)
[2023-12-03] MEDS: buPROPion XL 300 MG TAB.ER.24H PO SCH (08:02)
[2023-12-03] MEDS: CIPROFLOXACIN/DEXTROSE PMX 400 MG in DEXTROSE/WATER 1 200ML.BAG IVPB SCH (08:02)
[2023-12-03] MEDS: ENOXAPARIN 40 MG/0.4 ML SYRINGE SQ SCH (08:03)
[2023-12-03] MEDS: lisinopriL 10 MG TAB PO SCH (08:03)
--- NOTE | 2023-12-03 08:21 | P.PN ---
Subjective Progress Note Date: 12/03/23 Patient feels better. He has minimal complaints of pain. He has had some flatus. He has not had a bowel movement. On exam vital signs are stable. Abdomen is soft. There is minimal distention. Patient most likely has resolving ileus or PSBO. He will start on full liquids. Objective - Vital Signs Vital signs: Vital Signs Temp 98.2 F 12/03/23 02:40 Pulse 82 12/03/23 02:40 Resp 17 12/03/23 02:40 BP 163/89 12/03/23 02:40 Pulse Ox 98 12/03/23 02:40 FiO2 Intake & Output 12/02/23 12/03/23 12/03/23 18:59 06:59 18:59 Weight 94.5 kg - Labs CBC & Chem 7: 12/03/23 02:52 12/03/23 03:00 Labs: Abnormal Lab Results - Last 24 Hours (Table) 12/03/23 12/03/23 Range/Units 02:52 03:00 RBC 4.05 L (4.30-5.90) m/uL Hgb 12.5 L (13.0-17.5) gm/dL Hct 37.2 L (39.0-53.0) % Sodium 132 L (137-145) mmol/L Glucose 66 L (74-99) mg/dL Calcium 8.0 L (8.4-10.2) mg/dL Total Protein 5.4 L (6.3-8.2) g/dL Albumin 3.2 L (3.5-5.0) g/dL
[2023-12-03] MEDS: DESVENLAFAXINE SUCCINATE 50 MG TAB.ER.24H PO SCH (10:38)
[2023-12-03] MEDS: QUEtiapine 100 MG TAB PO SCH ×2 (10:40→20:33)
--- NOTE | 2023-12-03 14:31 | P.PN ---
Subjective Progress Note Date: 12/03/23 Hospital course: Patient is a very pleasant 63-year-old male who presented to the hospital with a chief complaint of abdominal pain. He underwent evaluation in the emergency department. CT abdomen and pelvis revealed abnormal loops of small bowel concerning for small bowel obstruction. Patient was started on Flagyl 500 mg IVPB and Cipro 400 mg every 12 hours IVPB. He was admitted under our services with consultation to general surgery. Physical exam: Patient was seen and fully evaluated at bedside this morning. Patient sitting on the edge of bed reports he is doing a bit better today. Patient reports abdominal pain is improving and he is passing flatus. He denies having a bowel movement since arrival to our facility. Patient denies having any nausea, vomiting, or any other complaints at this time. He is tolerating clear liquid diet. Vital signs reviewed and stable. General: Nontoxic, no distress and appears stated age. Derm: Skin warm and dry, normal coloration for ethnicity. Head: Atraumatic, normocephalic and symmetric. Eyes: EOM's intact, no lid lag, and anicteric sclera Mouth: no lip lesions, mucus membranes moist Cardiovascular: regular rate and rhythm with normal S1S2, no murmur, positive posterior tibial pulses bilaterally, and cap refill < 2 seconds. Lungs: Respirations even, regular, and unlabored on room air. Lungs CTA bilaterally, no rhonchi, no rales, no wheezing, and no accessory muscle usage. Abdominal: Abdomen is soft distended, bowel sounds present in all 4 quadrants. Mild diffuse tenderness reported upon palpation. Ext: ROM intact. No gross muscle atrophy, no edema, no contractures Neuro: Speech clear, face symmetrical and CN II-XII grossly intact with no noted focal neuro deficits Psych: Alert and oriented to person, place, time, and situation. Appropriate and pleasant affect. Assessment and Plan of Care: Small bowel obstruction versus ileus, appears to be improving Colitis Abdominal pain, secondary to above Hypertension Hyperlipidemia Anxiety General Surgery following, discussed plan with Dr. Carey. Continue IV antibiotics with Flagyl 500 mg every 8 hours and ciprofloxacin 400 mg every 12 hours. Continue symptomatic treatment and pain management with Dilaudid. Antiemetics with Zofran. Full liquid diet, advance only per general surgery recommendations. Hypertension Continue lisinopril 10 mg daily. Hyperlipidemia Continue daily medication regimen with atorvastatin 20 mg nightly, Anxiety and depression Continue Wellbutrin 300 mg daily, Pristiq 100 mg daily, and Seroquel 100 mg nightly. CODE STATUS: Full code DVT prophylaxis: Lovenox Anticipated discharge date: Pending clinical course Anticipated discharge place: Home Patient was seen independently by Nurse Pracitioner. This document was prepared using [employer] dictation software. Please allow for errors in rib chopper, while rare they do occur. Mathew Garcias PUTTY MIXER rendered care for this patient independently, reviewed the findings and plan as documented in the note above. I did not physically speak with or examine the patient on this date. Objective - Vital Signs Vital signs: Vital Signs Temp 97.4 F L 12/03/23 07:23 Pulse 94 12/03/23 07:23 Resp 17 12/03/23 07:23 BP 162/88 12/03/23 07:23 Pulse Ox 97 12/03/23 07:23 FiO2 Intake & Output 12/02/23 12/03/23 12/03/23 18:59 06:59 18:59 Weight 94.5 kg - Labs CBC & Chem 7: 12/03/23 02:52 12/03/23 03:00 Labs: Abnormal Lab Results - Last 24 Hours (Table) 12/03/23 12/03/23 Range/Units 02:52 03:00 RBC 4.05 L (4.30-5.90) m/uL Hgb 12.5 L (13.0-17.5) gm/dL Hct 37.2 L (39.0-53.0) % Sodium 132 L (137-145) mmol/L Glucose 66 L (74-99) mg/dL Calcium 8.0 L (8.4-10.2) mg/dL Total Protein 5.4 L (6.3-8.2) g/dL Albumin 3.2 L (3.5-5.0) g/dL
[2023-12-03] MEDS: IBUPROFEN 400 MG TAB PO PRN (20:30)
[2023-12-03] MEDS: ATORVASTATIN 20 MG TAB PO SCH (20:33)
[2023-12-04] MEDS: KETOROLAC 15 MG/ML 1 ML VIAL IVP PRN (00:13)
[2023-12-04 06:36] LABS: Glucose,Whole Blood 111 mg/dL (70-110)
[2023-12-04 11:04] LABS: Glucose,Whole Blood 115 mg/dL (70-110)
[2023-12-04] MEDS: HYDROmorphone 0.5 MG/0.5 ML SYRINGE ONE ×3 (11:24)
[2023-12-04] MEDS: IBUPROFEN 400 MG TAB ONE (11:24)
[2023-12-04] MEDS: KETOROLAC 15 MG/ML 1 ML VIAL ONE (11:25)
--- NOTE | 2023-12-04 11:42 | P.PN ---
Subjective Progress Note Date: 12/04/23 CHIEF COMPLAINT: Abdominal pain HISTORY OF PRESENT ILLNESS: Patient reports he is feeling better. He is tolerating Full liquid diet. No nausea or vomiting. Afebrile. BP elevated. Patient seen and examined with Dr. Carey PHYSICAL EXAM: VITAL SIGNS: Reviewed. GENERAL: Well-developed in no acute distress. ABDOMEN: Soft. Nondistended. Nontender. NEUROLOGIC: Alert and oriented. Cranial nerves II through XII grossly intact. ASSESSMENT: 1. Resolving ileus or partial small bowel obstruction PLAN: -Patient can be discharged from surgical standpoint -Continue full liquid diet and advance as tolerated -Encourage patient to increase activity level -Recommend follow-up with Dr. Carey in office in 1 week Physician Tube Teller note has been reviewed by physician. Signing provider agrees with the documented findings, assessment, and plan of care. Objective - Vital Signs Vital signs: Vital Signs Temp 97.3 F L 12/04/23 08:05 Pulse 88 12/04/23 08:05 Resp 17 12/04/23 08:05 BP 177/98 12/04/23 08:05 Pulse Ox 96 12/04/23 08:05 FiO2 Intake & Output 12/03/23 12/04/23 12/04/23 18:59 06:59 18:59 Intake Total 250 Balance 250 Intake: Oral 250 Other: # Voids 3 2 - Labs CBC & Chem 7: 12/03/23 02:52 12/03/23 03:00 Labs: Abnormal Lab Results - Last 24 Hours (Table) 12/04/23 Range/Units 06:36 POC Glucose (mg/dL) 111 H (70-110) mg/dL
--- NOTE | 2023-12-04 15:03 | P.DS ---
Providers Date of admission: 12/02/23 02:11 Expected date of discharge: 12/04/23 Attending physician: Marcus Garcia MD Consults: 12/02/23 19:25 Consult Physician Routine Consulting Provider: Kip Carey Consult Reason/Comments: small bowel obstruction vs ileus Do you want consulting provider notified?: Already Contacted Primary care physician: Stated None Hospital Course: Discharge Diagnosis: Small bowel obstruction, resolved after treatment with conservative measures. Abdominal pain, secondary to above Hypertension Hyperlipidemia Anxiety Hypertension. Continue lisinopril 10 mg daily. Hyperlipidemia. Continue daily medication regimen with atorvastatin 20 mg nightly, Anxiety and depression. Continue Wellbutrin 300 mg daily, Pristiq 100 mg daily, and Seroquel 100 mg nightly. Hospital Course: Patient is a very pleasant 63-year-old male who presented to the hospital with a chief complaint of abdominal pain. He underwent evaluation in the emergency department. CT abdomen and pelvis revealed abnormal loops of small bowel concerning for small bowel obstruction. Patient was started on Flagyl 500 mg IVPB and Cipro 400 mg every 12 hours IVPB. He was admitted under our services with consultation to general surgery. Patient was treated with conservative measures. Abdominal pain/distention slowly improving. Patient began passing flatus and has now had a bowel movement. Small bowel obstruction resolved. Patient tolerating regular diet, cleared from general surgery perspective and is medically stable for discharge home at this time. Patient discharged home on MiraLAX 17 g daily Physical exam: Vital signs reviewed and sta.ble. General: Nontoxic, no distress and appears stated age. Derm: Skin warm and dry, normal coloration for ethnicity. Head: Atraumatic, normocephalic and symmetric. Eyes: EOM's intact, no lid lag, and anicteric sclera Mouth: no lip lesions, mucus membranes moist Cardiovascular: regular rate and rhythm with normal S1S2, no murmur, positive posterior tibial pulses bilaterally, and cap refill < 2 seconds. Lungs: Respirations even, regular, and unlabored on room air. Lungs CTA bilaterally, no rhonchi, no rales, no wheezing, and no accessory muscle usage. Abdominal: Abdomen is soft distended, bowel sounds present in all 4 quadrants. No tenderness upon palpation. Ext: ROM intact. No gross muscle atrophy, no edema, no contractures Neuro: Speech clear, face symmetrical and CN II-XII grossly intact with no noted focal neuro deficits Psych: Alert and oriented to person, place, time, and situation. Appropriate and pleasant affect. A total of 34 minutes of time were spent preparing this complex discharge summary. Pt was discharged on 12/04/2023 at 2:58 PM. Patient was seen independently by Nurse Practitioner. This document was prepared using [employer] dictation software. Please allow for errors in manager relationship while rare they do occur. Mathew Garcias NP rendered care for this patient independently, reviewed the findings and plan as documented in the note above. I did not physically speak with or examine the patient on this date. Patient Condition at Discharge: Stable Plan - Discharge Summary New Discharge Prescriptions: New polyethylene glycoL 3350 [Miralax] 17 gm PO DAILY 30 Days #30 packet Continue Albuterol Inhaler [Ventolin Hfa Inhaler] 2 puff INHALATION Q6HR PRN PRN Reason: Shortness Of Breath lisinopriL [Zestril] 10 mg PO HS Ipratropium/Albuterol Sulfate [Duoneb 0.5 mg-3 mg/3 ml Soln] 3 ml INHALATION QID PRN PRN Reason: Dyspnea EPINEPHrine [Epipen 2-Melchor] 0.3 mg IM ONCE PRN #1 ml PRN Reason: Anaphylaxis Desvenlafaxine Succinate [Pristiq] 100 mg PO DAILY Docusate [Colace] 100 mg PO DAILY #30 capsule QUEtiapine [SEROquel] 100 mg PO HS Atorvastatin [Lipitor] 20 mg PO HS buPROPion HCL [Wellbutrin XL] 300 mg PO DAILY Apixaban [Eliquis] 2.5 mg PO BID #60 tab HYDROcodone/APAP 7.5-325MG [[place] 7.5-325] 1 - 2 each PO Q6HR PRN #36 tab PRN Reason: Pain Discharge Medication List Albuterol Inhaler [Ventolin Hfa Inhaler] 2 puff INHALATION Q6HR PRN 10/19/13 [History] Ipratropium/Albuterol Sulfate [Duoneb 0.5 mg-3 mg/3 ml Soln] 3 ml INHALATION QID PRN 10/19/13 [History] lisinopriL [Zestril] 10 mg PO HS 10/19/13 [History] EPINEPHrine [Epipen 2-Melchor] 0.3 mg IM ONCE PRN #1 ml 10/20/13 [Rx] Atorvastatin [Lipitor] 20 mg PO HS 04/07/21 [History] Desvenlafaxine Succinate [Pristiq] 100 mg PO DAILY 04/07/21 [History] QUEtiapine [SEROquel] 100 mg PO HS 04/07/21 [History] buPROPion HCL [Wellbutrin XL] 300 mg PO DAILY 04/07/21 [History] Apixaban [Eliquis] 2.5 mg PO BID #60 tab 01/22/22 [Rx] Docusate [Colace] 100 mg PO DAILY #30 capsule 01/22/22 [Rx] HYDROcodone/APAP 7.5-325MG [[place] 7.5-325] 1 - 2 each PO Q6HR PRN #36 tab 01/22/22 [Rx] polyethylene glycoL 3350 [Miralax] 17 gm PO DAILY 30 Days #30 packet 12/04/23 [Rx] Follow up Appointment(s)/Referral(s): Milla Estrada MD [REFERRING] - 1-2 Days (Please call to schedule first available appointment with residency clinic for follow up visit and to establish care with PCP) Kip Carey MD [STAFF PHYSICIAN] - 1 Week (Office is closed at time of discharge. Please call for follow-up apppointment.) Patient Instructions/Handouts: High Fiber Diet (DC), Bowel Obstruction (DC) Discharge Disposition: HOME SELF-CARE
[2023-12-04 15:35] VITALS: BP 156/88; PULSE 86; TEMP 98.1
--- NOTE | 2024-01-05 14:49 | CONS ---
CONSULTATION HISTORY OF PRESENT ILLNESS: This is a 63-year-old male who was admitted to the hospital with complaints of abdominal pain and nausea. The patient had a CAT scan performed, which showed several loops of dilated small bowel suggestive of the low-grade partial small bowel obstruction. The patient states he currently feels better. He denies any significant nausea currently. PAST MEDICAL HISTORY: Please see admission chart. PHYSICAL EXAMINATION: VITAL SIGNS: Stable. CHEST: Clear. ABDOMEN: Soft with minimal tenderness. There is no rebound or guarding. There are no surgical scars. ASSESSMENT AND PLAN: Partial small bowel obstruction. The patient has had no significant bowel function. He will remain n.p.o. He will receive IV fluids. We will watch him carefully. MMODL / IJN: [id number] /
== END 2023-12-04 16:01 | disposition home or self-care (01) | DRG 390 ==
LOC: 4SSUR 02:11
PROVIDERS: ADMIT Internal Medicine; ATTEND Internal Medicine
DX: K56.600 Partial intestinal obstruction, unspecified as to cause (principal); K56.7 Ileus, unspecified; K52.9 Noninfective gastroenteritis and colitis, unspecified; I10 Essential (primary) hypertension; F41.9 Anxiety disorder, unspecified; F32.A Depression, unspecified; E78.5 Hyperlipidemia, unspecified; Z79.899 Other long term (current) drug therapy; Z88.0 Allergy status to penicillin; Z88.8 Allergy status to other drugs, medicaments and biological substances; Z91.030 Bee allergy status; Z88.1 Allergy status to other antibiotic agents
CPT/HCPCS: 74177; 80053; 83735; 85025; 87040; 93005; 96361; 96374; 96376; 99285

== ENCOUNTER 2023-12-23 15:07 | Inpatient (IN) | payer MEDICARE ==
--- NOTE | 2023-12-23 15:25 | ED ---
Abdominal Pain HPI - General Chief Complaint: Abdominal Pain Stated Complaint: post-op abd pain Time Seen by Provider: 12/23/23 15:24 Source: patient, family, RN notes reviewed Mode of arrival: ambulatory Limitations: no limitations - History of Present Illness Initial Comments: 63-year-old male presents emergency department accompanied by his chief complaint of diffuse abdominal pain over the past few days. Patient states that he believes he was constipated and took magnesium citrate at home yesterday with minimal relief. Patient states episode of diarrhea this morning and is still passing gas. He states that he has been having difficulty with initiating his urine stream. Denies chest pain, shortness of breath, heart palpitations, dizzi ness lightheadedness. Denies hematochezia, dark or tarry stools, urinary changes. Patient was admitted to the hospital in November of 2023 with a small bowel obstruction and discharged home. - Related Data Home Medications Medication Instructions Recorded Confirmed Albuterol Inhaler [Ventolin Hfa 2 puff INHALATION RT-Q6H PRN 10/19/13 12/23/23 Inhaler] Atorvastatin [Lipitor] 20 mg PO HS 04/07/21 12/23/23 Desvenlafaxine Succinate [Pristiq] 100 mg PO DAILY 04/07/21 12/23/23 QUEtiapine [SEROquel] 100 mg PO HS 04/07/21 12/23/23 buPROPion HCL [Wellbutrin XL] 300 mg PO DAILY 04/07/21 12/23/23 Lisinopril-Hctz 20-12.5 mg 1 tab PO HS 12/23/23 12/23/23 [Zestoretic 20-12.5] Previous Rx's Medication Instructions Recorded EPINEPHrine [Epipen 2-Melchor] 0.3 mg IM ONCE PRN #1 ml 10/20/13 polyethylene glycoL 3350 [Miralax] 17 gm PO DAILY 30 Days #30 packet 12/04/23 Allergies Allergy/AdvReac Type Severity Reaction Status Date / Time amlodipine besylate Allergy Unknown Verified 12/23/23 18:19 [From Master] budesonide [From Pulmicort] Allergy Unknown Verified 12/23/23 18:19 dyclonine HCl [From Sucrets] Allergy shortness Verified 12/23/23 18:19 of breath hexylresorcinol Allergy Unknown Verified 12/23/23 18:19 [From Sucrets] olmesartan medoxomil Allergy Unknown Verified 12/23/23 18:19 [From Master] penicillin V potassium Allergy Unknown Verified 12/23/23 18:19 [From Pen-Vee K] Childhood venom-honey bee Allergy Unknown Verified 12/23/23 18:19 [bee venom (honey bee)] Review of Systems ROS Statement: Those systems with pertinent positive or pertinent negative responses have been documented in the HPI. ROS Other: All systems not noted in ROS Statement are negative. Past Medical History Past Medical History: Asthma, COPD, Hyperlipidemia, Hypertension, Osteoarthritis (OA) Additional Past Medical History / Comment(s): Heart diseaseleft bundle branch block History of Any Multi-Drug Resistant Organisms: None Reported Past Surgical History: Heart Catheterization, Orthopedic Surgery Additional Past Surgical History / Comment(s): rt hand trigger thumb, rt carpal tunnel, lump removed from neck, ganglion cyst removed right foot Past Anesthesia/Blood Transfusion Reactions: No Reported Reaction Past Psychological History: Depression Smoking Status: Former smoker Past Alcohol Use History: Occasional Past Drug Use History: None Reported - Past Family History Mother Family Medical History: Hyperlipidemia General Exam Limitations: no limitations General appearance: alert, in no apparent distress Head exam: Present: atraumatic, normocephalic, normal inspection ENT exam: Present: normal exam, mucous membranes moist Neck exam: Present: normal inspection. Absent: tenderness, meningismus, lym phadenopathy Respiratory exam: Present: normal lung sounds bilaterally. Absent: respiratory distress, wheezes, rales, rhonchi, stridor Cardiovascular Exam: Present: regular rate, normal rhythm, normal heart sounds. Absent: systolic murmur, diastolic murmur, rubs, gallop, clicks GI/Abdominal exam: Present: soft, distended, tenderness (diffuse), normal bowel sounds. Absent: guarding, rebound, rigid Extremities exam: Present: normal inspection, full ROM, normal capillary refill. Absent: tenderness, pedal edema, joint swelling, calf tenderness Back exam: Present: normal inspection Skin exam: Present: warm, dry, intact, normal color. Absent: rash Course Vital Signs 12/23/23 12/23/23 12/23/23 15:14 15:44 17:48 Temperature 98.1 F Pulse Rate 109 H 105 H 99 Respiratory 20 20 20 Rate Blood Pressure 141/95 144/93 143/94 O2 Sat by Pulse 98 99 96 Oximetry Medical Decision Making - Medical Decision Making Was pt. sent in by a medical professional or institution (CLARA Herrmann, DIRECTOR OF AVIATION, urgent care, hospital, or group home...) When possible be specific @ -No Did you speak to anyone other than the patient for history (EMS, parent, family, police, friend...)? What history was obtained from this source @ -Spoke to the patient's at the bedside states the patient been having abdominal pain over the past few days it has been worsening. Did you review nursing and triage notes (agree or disagree)? Why? @ -I reviewed and agree with nursing and triage notes Were old charts reviewed (outside hosp., previous admission, EMS record, old EKG, old radiological studies, urgent care reports/EKG's, group home records)? Report findings @ -Reviewed patient's previous emergency department visit note where he was admitted to the hospital for small bowel obstruction Differential Diagnosis (chest pain, altered mental status, abdominal pain women, abdominal pain men, vaginal bleeding, weakness, fever, dyspnea, syncope, headache, dizziness, GI bleed, back pain, seizure, CVA, palpatations, mental health, musculoskeletal)? @ -Differential Abdominal Pain Men: Appendicitis, cholecystitis, diverticulosis, ischemic bowel, pancreatitis, hepatitis, UTI, gastroenteritis, AAA, incarcerated hernia, bowel obstruction, constipation, inflammatory bowel, hepatitis, peptic ulcer disease, splenic infarction, perforated viscus, testicular torsion, this is not meant to be an all-inclusive list EKG interpreted by me (3pts min.). @ -none X-rays interpreted by me (1pt min.). @ -None done CT interpreted by me (1pt min.). @ -CT abdomen pelvis with IV contrast reveals mid abdominal small bowel obstruction with couple continuous small loops of bowel dilated up to 4.1 cm, concern for possibility of closed-loop obstruction, sigmoid diverticulosis without diverticulitis. U/S interpreted by me (1pt. min.). @ -None done What testing was considered but not performed or refused? (CT, X-rays, U/S, lab s)? Why? @ -None What meds were considered but not given or refused? Why? @ -None Did you discuss the management of the patient with other professionals (professionals i.e. , PA, DIRECTOR OF AVIATION, lab, RT, psych nurse, school social worker, shredded filler cigar maker machine, teacher, airframe technical officer, case specialist)? Give summary @ -I spoke with internal medicine physician, Dr. Jimenez, with sound physicians in regard to the patient's presentation and CT scan concerning for SBO, patient will be admitted and kept as NPO and under pain control with general surgery on consult. Was smoking cessation discussed for >3mins.? @ -No Was critical care preformed (if so, how long)? @ -No Were there social determinants of health that impacted care today? How? (Homelessness, low income, unemployed, alcoholism, drug addiction, transportation, low edu. Level, literacy, decrease access to med. care, correction, rehab)? @ -No Was there de-escalation of care discussed even if they declined (Discuss DNR or withdrawal of care, Hospice)? DNR status @ -No What co-morbidities impacted this encounter? (DM, HTN, Smoking, COPD, CAD, Cancer, CVA, ARF, Chemo, Hep., AIDS, mental health diagnosis, sleep apnea, morbid obesity)? @ -None Was patient admitted / discharged? Hospital course, mention meds given and route, prescriptions, significant lab abnormalities, going to OR and other pertinent info. @ -63-year-old male with abdominal pain. On examination patient is resting comfortably no signs of acute distress. Abdominal examination remarkable for distended abdomen with diffuse tenderness on palpation. Bowel sounds are equal and reactive. Patient is provided with pain medication pending results of CT imaging and labs, he is in agreement with this plan. CBC, CMP within normal limits, and urinalysis no signs of infection. CT pending for small bowel obstruction. Patient will be admitted to medicine with surgery on consult and kept n.p.o. and will be provided with pain medication as needed. Discussed with Dr. Winkler. Undiagnosed new problem with uncertain prognosis? @ -No Drug Therapy requiring intensive monitoring for toxicity (Heparin, Nitro, Insulin, Cardizem)? @ -No Were any procedures done? @ -No Diagnosis/symptom? @ -small bowel obstruction Acute, or Chronic, or Acute on Chronic? @ -Acute Uncomplicated (without systemic symptoms) or Complicated (systemic symptoms)? @ -Uncomplicated Side effects of treatment? @ -No Exacerbation, Progression, or Severe Exacerbation? @ -No Poses a threat to life or bodily function? How? (Chest pain, [place], [place], pneumonia, PE, COPD, DKA, ARF, appy, cholecystitis, CVA, Diverticulitis, Homicidal, Suicidal, threat to staff... and all critical care pts) @ -No - Lab Data Result diagrams: 12/23/23 15:44 12/23/23 15:44 Lab Results 12/23/23 12/23/23 12/23/23 Range/Units 15:44 15:44 15:44 WBC 8.6 (3.8-10.6) k/uL RBC 5.01 (4.30-5.90) m/uL Hgb 15.1 (13.0-17.5) gm/dL Hct 44.6 (39.0-53.0) % MCV 88.9 (80.0-100.0) fL MCH 30.1 (25.0-35.0) pg MCHC 33.9 (31.0-37.0) g/dL RDW 12.7 (11.5-15.5) % Plt Count 329 (150-450) k/uL MPV 7.8 Neutrophils % 67 % Lymphocytes % 21 % Monocytes % 8 % Eosinophils % 1 % Basophils % 1 % Neutrophils # 5.8 (1.3-7.7) k/uL Lymphocytes # 1.8 (1.0-4.8) k/uL Monocytes # 0.7 (0-1.0) k/uL Eosinophils # 0.1 (0-0.7) k/uL Basophils # 0.1 (0-0.2) k/uL Sodium 138 (137-145) mmol/L Potassium 5.1 (3.5-5.1) mmol/L Chloride 102 (98-107) mmol/L Carbon Dioxide 26 (22-30) mmol/L Anion Gap 10 mmol/L BUN 15 (9-20) mg/dL Creatinine 0.98 (0.66-1.25) mg/dL Est GFR (CKD-EPI)AfAm >90 (>60 ml/min/1.73 sqM) Est GFR (CKD-EPI)NonAf 81 (>60 ml/min/1.73 sqM) Glucose 92 (74-99) mg/dL Plasma Lactic Acid Viral 1.5 (0.7-2.0) mmol/L Calcium 9.7 (8.4-10.2) mg/dL Magnesium 2.4 H (1.6-2.3) mg/dL Total Bilirubin 1.3 (0.2-1.3) mg/dL AST 40 (17-59) U/L ALT 41 (4-49) U/L Alkaline Phosphatase 96 (38-126) U/L Total Protein 7.9 (6.3-8.2) g/dL Albumin 4.7 (3.5-5.0) g/dL Amylase 41 (30-110) U/L Lipase 93 (23-300) U/L Urine Color Urine Appearance (Clear) Urine pH (5.0-8.0) Ur Specific [place] (1.001-1.035) Urine Protein (Negative) Urine Glucose (UA) (Negative) Urine Ketones (Negative) Urine Blood (Negative) Urine Nitrite (Negative) Urine Bilirubin (Negative) Urine Urobilinogen (<2.0) mg/dL Ur Leukocyte Esterase (Negative) Urine RBC (0-5) /hpf Urine WBC (0-5) /hpf Ur Squamous Epith Cells (0-4) /hpf Urine Mucus (None) /hpf 12/23/23 Range/Units 16:47 WBC (3.8-10.6) k/uL RBC (4.30-5.90) m/uL Hgb (13.0-17.5) gm/dL Hct (39.0-53.0) % MCV (80.0-100.0) fL MCH (25.0-35.0) pg MCHC (31.0-37.0) g/dL RDW (11.5-15.5) % Plt Count (150-450) k/uL MPV Neutrophils % % Lymphocytes % % Monocytes % % Eosinophils % % Basophils % % Neutrophils # (1.3-7.7) k/uL Lymphocytes # (1.0-4.8) k/uL Monocytes # (0-1.0) k/uL Eosinophils # (0-0.7) k/uL Basophils # (0-0.2) k/uL Sodium (137-145) mmol/L Potassium (3.5-5.1) mmol/L Chloride (98-107) mmol/L Carbon Dioxide (22-30) mmol/L Anion Gap mmol/L BUN (9-20) mg/dL Creatinine (0.66-1.25) mg/dL Est GFR (CKD-EPI)AfAm (>60 ml/min/1.73 sqM) Est GFR (CKD-EPI)NonAf (>60 ml/min/1.73 sqM) Glucose (74-99) mg/dL Plasma Lactic Acid Viral (0.7-2.0) mmol/L Calcium (8.4-10.2) mg/dL Magnesium (1.6-2.3) mg/dL Total Bilirubin (0.2-1.3) mg/dL AST (17-59) U/L ALT (4-49) U/L Alkaline Phosphatase (38-126) U/L Total Protein (6.3-8.2) g/dL Albumin (3.5-5.0) g/dL Amylase (30-110) U/L Lipase (23-300) U/L Urine Color Yellow Urine Appearance Cloudy (Clear) Urine pH 8.5 H (5.0-8.0) Ur Specific [place] 1.020 (1.001-1.035) Urine Protein 1+ H (Negative) Urine Glucose (UA) Negative (Negative) Urine Ketones Trace H (Negative) Urine Blood Negative (Negative) Urine Nitrite Negative (Negative) Urine Bilirubin Negative (Negative) Urine Urobilinogen <2.0 (<2.0) mg/dL Ur Leukocyte Esterase Negative (Negative) Urine RBC 1 (0-5) /hpf Urine WBC 1 (0-5) /hpf Ur Squamous Epith Cells 1 (0-4) /hpf Urine Mucus Many H (None) /hpf Disposition Clinical Impression: Small bowel obstruction Disposition: ADMITTED IP TO THIS [facility] Condition: Stable Is patient prescribed a controlled substance at d/c from ED?: No Decision to Admit Reason: Admit from EC Decision Date: 12/23/23 Decision Time: 18:00
[2023-12-23] MEDS: HYDROmorphone 0.5 MG/0.5 ML SYRINGE IVP STA (15:59)
[2023-12-23 16:10] LABS: Basophils # (A) 0.1 k/uL (0-0.2); Basophils % (A) 1 %; Eosinophils # (A) 0.1 k/uL (0-0.7); Eosinophils % (A) 1 %; HCT 44.6 % (39.0-53.0); HGB 15.1 gm/dL (13.0-17.5); Lymphocytes # (A) 1.8 k/uL (1.0-4.8); Lymphocytes % (A) 21 %; MCH 30.1 pg (25.0-35.0); MCHC 33.9 g/dL (31.0-37.0); MCV 88.9 fL (80.0-100.0); Mean Platelet Volume 7.8; Monocytes # (A) 0.7 k/uL (0-1.0); Monocytes % (A) 8 %; Neutrophils # (A) 5.8 k/uL (1.3-7.7); Neutrophils % (A) 67 %; Platelet Count 329 k/uL (150-450); RBC 5.01 m/uL (4.30-5.90); RDW 12.7 % (11.5-15.5); WBC 8.6 k/uL (3.8-10.6)
[2023-12-23 16:23] LABS: ALT 41 U/L (4-49); African American GFR (CKD) >90 (>60 ml/min/1.73 sqM); Amylase 41 U/L (30-110); Anion Gap 10 mmol/L; Blood Urea Nitrogen 15 mg/dL (9-20); Calcium 9.7 mg/dL (8.4-10.2); Carbon Dioxide 26 mmol/L (22-30); Chloride 102 mmol/L (98-107); Glucose 92 mg/dL (74-99); Lipase 93 U/L (23-300); Non-African American GFR(CKD) 81 (>60 ml/min/1.73 sqM); Sodium 138 mmol/L (137-145); Total Bilirubin 1.3 mg/dL (0.2-1.3)
[2023-12-23 16:43] LABS: Albumin 4.7 g/dL (3.5-5.0); Magnesium 2.4 mg/dL (1.6-2.3); Potassium 5.1 mmol/L (3.5-5.1); Total Protein 7.9 g/dL (6.3-8.2)
[2023-12-23 16:44] LABS: AST 40 U/L (17-59); Alkaline Phosphatase 96 U/L (38-126)
[2023-12-23 17:20] LABS: Bilirubin,Urine Negative (Negative); Blood,Urine Negative (Negative); Color,Urine Yellow; Glucose,Urine (UA) Negative (Negative); Ketones,Urine Trace (Negative); Leukocyte Esterase,Urine Negative (Negative); Mucus,Urine Many /hpf; Nitrite,Urine Negative (Negative); PH, Urine 8.5 (5.0-8.0); Protein,Urine 1+ (Negative); RBC,Urine 1 /hpf (0-5); Squamous Epithelial Cell,Urine 1 /hpf (0-4); Urobilinogen,Urine <2.0 mg/dL (<2.0); WBC,Urine 1 /hpf (0-5)
[2023-12-23 17:22] LABS: Appearance,Urine Cloudy (Clear)
--- NOTE | 2023-12-23 17:42 | CT ---
EXAMINATION TYPE: CT abdomen pelvis w con DATE OF EXAM: 12/23/2023 COMPARISON: 12/01/2023 HISTORY: 63-year-old male Abdominal pain TECHNIQUE: Contiguous axial scanning of the abdomen and pelvis following administration of 100 ml Omn ipaque with diffuse Isovue 300 IV contrast. Delayed images through the kidneys and coronal/sagittal reconstructions performed. CT DLP: 978.5 mGycm Automated exposure control for dose reduction was used. FINDINGS: Heart normal size without pericardial effusion. Lung bases clear without pleural effusion. Liver borderline enlarged at 17.4 cm. No focal lesion. No biliary ductal dilatation. Portal venous sy stem is patent. Gallbladder, adrenal glands, left kidney, spleen with tiny anterior splenule, pancreas within normal limits. Tiny 8 mm cortical cyst anterior mid right kidney. Symmetric uptake and excretion of contrast from both kidneys. Also moderate atherosclerotic calcifications infrarenal abdominal aorta without aneurysm. A couple contiguous loops of mid small bowel dilated up to 4.1 cm with air-fluid levels. Possible 2 t ransition points, axial image 51 and 59. Coronal image 34. No free fluid or free air. There appears to be a prominent lymph node here measuring nearly 1 cm, probably reactive. No free fluid or free air. No significant stool burden. Sigmoid diverticulosis. No pericolonic inflammatory change. Mild circumferential bladder wall thickening may be chronic for the patient. Prostate gland is border line at 4.1 cm wide. No abnormal fluid collection in the pelvis or pelvic lymphadenopathy. IMPRESSION: 1. Suspicious for a mid abdominal small bowel obstruction. A couple contiguous loops of small bowel h ere are dilated up to 4.1 cm. There may be 2 associated transition points which raises the possibilit y of a closed loop obstruction. 2. A mildly enlarged lymph node measuring nearly 1 cm in this region is probably reactive. Consider f ollow-up CT in 3 months to ensure involution. 3. Sigmoid diverticulosis without acute diverticulitis. [facility], , 12/23/2023 5:39 PM
[2023-12-23] MEDS ORDERED: NALOXONE 0.4 MG/ML 1 ML VIAL IV PRN (18:01)
[2023-12-23] MEDS: HYDROmorphone 1 MG/ML 1 ML SYRINGE IVP PRN (19:36)
--- NOTE | 2023-12-23 21:32 | P.HPIM ---
History of Present Illness H&P Date: 12/23/23 Chief Complaint: abd pain , constipation Patient is a 63-year male with COPD (not on home O2), hypertension, hyperlipidemia that presents to the ED with abdominal pain. Patient reports that his abdominal pain started yesterday morning after he woke up, and states the pain waxes and wanes in severity throughout the day, but never fully resolved. Describes it as a diffuse, achy, pain with no radiation. Rates it an 8/10 pain at its worst. no associated nausea or vomiting, no GI bleeding. He reports his last bowel movement was 4 days ago, and has not been passing gasses. He stated he was here 3 weeks ago with similar symptoms. While here he got a CT abdomen that was negative and was discharged shortly after. Patient states he has not eaten in the past 3 days. Patient denies any fever, chills, chest pain, nausea, vomiting, shortness of breath. Admits to diaphoresis, abdominal distention. denies any surgical history to the abdomen, denies any similar conditions in the past. Review of systems: Pertinent positives and negatives as discussed in HPI, a complete review of systems was performed and all other systems are negative. Social history: Tobacco: Former 37 years 2 pack a day smoker, quit 15 years ago Alcohol: Occasional Recreational drugs: Denies illicit drug use Travel: Denies recent travel Occupation: Not obtained Physical examination: Vitals: T97.7 F, HI 98, RR 16, BP 144/84, O2 sat 94% on room air General: non toxic, no distress, appears at stated age, normal weight Derm: no unusual rashes/lesions, warm Head: atraumatic, normocephalic, symmetric Eyes: EOMI, anicteric sclera, pupils equal round reactive to light ENT: Nose and ears atraumatic Mouth: no lip lesion, mucus membranes moist Cardiovascular: S1S2 reg, no murmur, positive dorsalis pedis pulse bilateral, no edema Lungs: CTA bilateral, no rhonchi, no rales, no accessory muscle use Abdominal: Mildly distended, diffuse tenderness to palpation, no guarding, BS positive Ext: muscle strength 5 out of 5 in all 4 extremities grossly, no gross muscle atrophy, no contractures, Neuro: CN II-XI grossly intact, no gross focal neuro deficits Psych: Alert, oriented, appropriate affect Assessment/Plan: Patient is a 63-year male with COPD (not on home O2), hypertension, hyperlipidemia that presents to the ED with abdominal pain. ED documentation reviewed and case discussed with ED provider. Discussed with patient. I accepted the admission with an anticipated greater than 2 midnight stay for evaluation of abdominal pain secondary to suspected mid abdominal small bowel obstruction. #. Abdominal pain secondary to suspected mid abdominal small bowel obstruction obstipation Denies any recent abdominal surgery Last bowel movement 4 days ago CBC unremarkable, AST 40, ALT 41, bilirubin 1.3, alk phos 96 lipase 93, lactic acid 1.5 all within normal limit Abdominal CT suspicious for mid abdominal small bowel obstruction, couple contiguous loops of small bowel dilated up to 4.1 cm, may be 2 associated transition points, mildly large lymph node in area measur ing 1 cm, sigmoid diverticulosis without acute diverticulitis Keep patient NPO Protonix 40 mg IVP BID Pain management: Dilaudid 1 mg IVP every 3 hours are as needed Follow-up CBC, CMP Consult surgery IVF hydration with normal saline @ 130 cc per hour #. COPD (not on home O2), not in exacerbation No signs of wheezing, shortness of breath, cough O2 Sat 94% on room air DuoNebs as needed #. Hypertension Continue lisinoprilHCTZ 20-12.5 mg 1 tab p.o. at bedtime #. Hyperlipidemia Continue atorvastatin 20 mg p.o. at bedtime #. Anxiety/depression Continue Wellbutrin XL 300 mg p.o. daily Continue desvenlafaxine succinate 100 mg p.o. daily Continue Seroquel 100 mg p.o. at bedtime F: N/A E: Replete as needed N: NPO A: Patient ambulatory DVT prophylaxis: Lovenox 40 SQ daily CODE STATUS: Full Past Medical History Past Medical History: Asthma, COPD, Hyperlipidemia, Hypertension, Osteoarthritis (OA) Additional Past Medical History / Comment(s): Heart diseaseleft bundle branch block History of Any Multi-Drug Resistant Organisms: None Reported Past Surgical History: Heart Catheterization, Orthopedic Surgery Additional Past Surgical History / Comment(s): rt hand trigger thumb, rt carpal tunnel, lump removed from neck, ganglion cyst removed right foot Past Anesthesia/Blood Transfusion Reactions: No Reported Reaction Past Psychological History: Depression Smoking Status: Former smoker Past Alcohol Use History: Occasional Past Drug Use History: None Reported - Past Family History Mother Family Medical History: Hyperlipidemia Medications and Allergies Home Medications Medication Instructions Recorded Confirmed Type Albuterol Inhaler [Ventolin Hfa 2 puff INHALATION RT-Q6H PRN 10/19/13 12/23/23 History Inhaler] EPINEPHrine [Epipen 2-Melchor] 0.3 mg IM ONCE PRN #1 ml 10/20/13 12/23/23 Rx Atorvastatin [Lipitor] 20 mg PO HS 04/07/21 12/23/23 History Desvenlafaxine Succinate [Pristiq] 100 mg PO DAILY 04/07/21 12/23/23 History QUEtiapine [SEROquel] 100 mg PO HS 04/07/21 12/23/23 History buPROPion HCL [Wellbutrin XL] 300 mg PO DAILY 04/07/21 12/23/23 History polyethylene glycoL 3350 [Miralax] 17 gm PO DAILY 30 Days #30 packet 12/04/23 12/23/23 Rx Lisinopril-Hctz 20-12.5 mg 1 tab PO HS 12/23/23 12/23/23 History [Zestoretic 20-12.5] Allergies Allergy/AdvReac Type Severity Reaction Status Date / Time amlodipine besylate Allergy Unknown Verified 12/23/23 18:19 [From Master] budesonide [From Pulmicort] Allergy Unknown Verified 12/23/23 18:19 dyclonine HCl [From Sucrets] Allergy shortness Verified 12/23/23 18:19 of breath hexylresorcinol Allergy Unknown Verified 12/23/23 18:19 [From Sucrets] olmesartan medoxomil Allergy Unknown Verified 12/23/23 18:19 [From Master] penicillin V potassium Allergy Unknown Verified 12/23/23 18:19 [From Pen-Vee K] Childhood venom-honey bee Allergy Unknown Verified 12/23/23 18:19 [bee venom (honey bee)] Physical Exam Vitals: Vital Signs Temp Pulse Resp BP Pulse Ox 12/23/23 19:30 94 18 152/85 98 12/23/23 17:48 99 20 143/94 96 12/23/23 15:44 105 H 20 144/93 99 12/23/23 15:14 98.1 F 109 H 20 141/95 98 Intake and Output 12/23/23 12/23/2312/22/24 06:59 14:59 22:59 Other: Weight 93.894 kg Results CBC & Chem 7: 12/23/23 15:44 12/23/23 15:44 Labs: Abnormal Lab Results - Last 24 Hours (Table) 12/23/23 12/23/23 Range/Units 15:44 16:47 Magnesium 2.4 H (1.6-2.3) mg/dL Urine pH 8.5 H (5.0-8.0) Urine Protein 1+ H (Negative) Urine Ketones Trace H (Negative) Urine Mucus Many H (None) /hpf Assessment and Plan Assessment: I have seen and evaluated the patient today. I Discussed the case with the resident and agree with the resident's findings I edited the assessment and plan as necessary as documented in the resident's note.
[2023-12-23] MEDS: ENOXAPARIN 40 MG/0.4 ML SYRINGE SQ SCH (22:29)
[2023-12-23] MEDS: PANTOPRAZOLE 40 MG/10 ML VIAL IVP SCH (22:29)
[2023-12-23] MEDS: QUEtiapine 100 MG TAB PO SCH (22:29)
[2023-12-23] MEDS: SODIUM CHLORIDE 0.9% 1,000 ML IV SCH (23:46)
[2023-12-24] MEDS ORDERED: ALBUTEROL NEBULIZED 2.5 MG/3 ML INHALATION PRN
[2023-12-24 09:47] LABS: Basophils # (A) 0.03 X 10*3/uL (0.00-0.10); Basophils % (A) 0.5 %; Eosinophils # (A) 0.11 X 10*3/uL (0.04-0.35); Eosinophils % (A) 1.9 %; HCT 39.3 % (39.6-50.0); HGB 13.3 g/dL (13.0-17.0); Lymphocytes # (A) 2.23 X 10*3/uL (0.90-5.00); Lymphocytes % (A) 38.1 %; MCH 30.3 pg (27.0-32.0); MCHC 33.8 g/dL (32.0-37.0); MCV 89.5 FL (80.0-97.0); Mean Platelet Volume 10.4 FL (9.5-12.2); Monocytes % (A) 11.9 %; NRBC Per 100 WBC 0 X 10*3/uL (0.00-0.01); Neutrophils # (A) 2.77 X 10*3/uL (1.80-7.70); Neutrophils % (A) 47.3 %; Platelet Count 238 X 10*3/uL (140-440); RBC 4.39 X 10*6/uL (4.40-5.60); RDW 12.5 % (11.5-14.5); WBC 5.86 X 10*3/uL (4.50-10.00)
--- NOTE | 2023-12-24 09:50 | P.GSCN ---
History of Present Illness Consult date: 12/24/23 Reason for Consult: Small bowel obstruction History of present illness: This is a [age]-year-old male who is admitted to hospital with complaints of nausea abdominal pain. Patient states that overnight he has had several bowel movements and is passing gas. He states he has no abdominal pain. Past Medical History Past Medical History: Asthma, COPD, Hyperlipidemia, Hypertension, Osteoarthritis (OA) Additional Past Medical History / Comment(s): Heart diseaseleft bundle branch block History of Any Multi-Drug Resistant Organisms: None Reported Past Surgical History: Heart Catheterization, Orthopedic Surgery Additional Past Surgical History / Comment(s): rt hand trigger thumb, rt carpal tunnel, lump removed from neck, ganglion cyst removed right foot Past Anesthesia/Blood Transfusion Reactions: No Reported Reaction Past Psychological History: Depression Smoking Status: Former smoker Past Alcohol Use History: Occasional Past Drug Use History: None Reported - Past Family History Mother Family Medical History: Hyperlipidemia Medications and Allergies Home Medications Medication Instructions Recorded Confirmed Type Albuterol Inhaler [Ventolin Hfa 2 puff INHALATION RT-Q6H PRN 10/19/13 12/23/23 History Inhaler] EPINEPHrine [Epipen 2-Melchor] 0.3 mg IM ONCE PRN #1 ml 10/20/13 12/23/23 Rx Atorvastatin [Lipitor] 20 mg PO HS 04/07/21 12/23/23 History Desvenlafaxine Succinate [Pristiq] 100 mg PO DAILY 04/07/21 12/23/23 History QUEtiapine [SEROquel] 100 mg PO HS 04/07/21 12/23/23 History buPROPion HCL [Wellbutrin XL] 300 mg PO DAILY 04/07/21 12/23/23 History polyethylene glycoL 3350 [Miralax] 17 gm PO DAILY 30 Days #30 packet 12/04/23 12/23/23 Rx Lisinopril-Hctz 20-12.5 mg 1 tab PO HS 12/23/23 12/23/23 History [Zestoretic 20-12.5] Allergies Allergy/AdvReac Type Severity Reaction Status Date / Time amlodipine besylate Allergy Unknown Verified 12/23/23 18:19 [From Master] budesonide [From Pulmicort] Allergy Unknown Verified 12/23/23 18:19 dyclonine HCl [From Sucrets] Allergy shortness Verified 12/23/23 18:19 of breath hexylresorcinol Allergy Unknown Verified 12/23/23 18:19 [From Sucrets] olmesartan medoxomil Allergy Unknown Verified 12/23/23 18:19 [From Master] penicillin V potassium Allergy Unknown Verified 12/23/23 18:19 [From Pen-Vee K] Childhood venom-honey bee Allergy Unknown Verified 12/23/23 18:19 [bee venom (honey bee)] Surgical - Exam Vital Signs Temp Pulse Resp BP Pulse Ox 98.1 F 109 H 20 141/95 98 12/23/23 15:14 12/23/23 15:14 12/23/23 15:14 12/23/23 15:14 12/23/23 15:14 - General well developed, well nourished, no distress - Eyes PERRL - ENT normal pinna - Neck no masses - Respiratory normal expansion - Cardiovascular Rhythm: regular - Abdomen Abdomen: soft, non tender Results - Labs 12/24/23 03:36 12/23/23 15:44 Abnormal Lab Results - Last 24 Hours (Table) 12/23/23 12/23/23 12/24/23 Range/Units 15:44 16:47 03:36 RBC 4.39 L (4.40-5.60) X 10*6/uL Hct 39.3 L (39.6-50.0) % Magnesium 2.4 H (1.6-2.3) mg/dL Urine pH 8.5 H (5.0-8.0) Urine Protein 1+ H (Negative) Urine Ketones Trace H (Negative) Urine Mucus Many H (None) /hpf Diabetes panel 12/23/23 Range/Units 15:44 Sodium 138 (137-145) mmol/L Potassium 5.1 (3.5-5.1) mmol/L Chloride 102 (98-107) mmol/L Carbon Dioxide 26 (22-30) mmol/L BUN 15 (9-20) mg/dL Creatinine 0.98 (0.66-1.25) mg/dL Glucose 92 (74-99) mg/dL Calcium 9.7 (8.4-10.2) mg/dL AST 40 (17-59) U/L ALT 41 (4-49) U/L Alkaline Phosphatase 96 (38-126) U/L Total Protein 7.9 (6.3-8.2) g/dL Albumin 4.7 (3.5-5.0) g/dL Calcium panel 12/23/23 Range/Units 15:44 Calcium 9.7 (8.4-10.2) mg/dL Albumin 4.7 (3.5-5.0) g/dL Pituitary panel 12/23/23 Range/Units 15:44 Sodium 138 (137-145) mmol/L Potassium 5.1 (3.5-5.1) mmol/L Chloride 102 (98-107) mmol/L Carbon Dioxide 26 (22-30) mmol/L BUN 15 (9-20) mg/dL Creatinine 0.98 (0.66-1.25) mg/dL Glucose 92 (74-99) mg/dL Calcium 9.7 (8.4-10.2) mg/dL Adrenal panel 12/23/23 Range/Units 15:44 Sodium 138 (137-145) mmol/L Potassium 5.1 (3.5-5.1) mmol/L Chloride 102 (98-107) mmol/L Carbon Dioxide 26 (22-30) mmol/L BUN 15 (9-20) mg/dL Creatinine 0.98 (0.66-1.25) mg/dL Glucose 92 (74-99) mg/dL Calcium 9.7 (8.4-10.2) mg/dL Total Bilirubin 1.3 (0.2-1.3) mg/dL AST 40 (17-59) U/L ALT 41 (4-49) U/L Alkaline Phosphatase 96 (38-126) U/L Total Protein 7.9 (6.3-8.2) g/dL Albumin 4.7 (3.5-5.0) g/dL Assessment and Plan Assessment: Resolved ileus/partial small bowel obstruction. Patient will be started on clear liquid diet. No surgical invention is planned.
[2023-12-24] MEDS: DESVENLAFAXINE SUCCINATE 50 MG TAB.ER.24H PO SCH (10:12)
[2023-12-24] MEDS: buPROPion XL 300 MG TAB.ER.24H PO SCH (10:13)
[2023-12-24 10:25] LABS: ALT 29 U/L (10-49); AST 20 U/L (14-35); Albumin 3.8 g/dL (3.8-4.9); Albumin/Globulin Ratio 1.73 Ratio (1.60-3.17); Alkaline Phosphatase 103 U/L (41-126); Blood Urea Nitrogen 14.8 mg/dL (9.0-27.0); Calcium 8.6 mg/dL (8.7-10.3); Carbon Dioxide 22.2 mmol/L (21.6-31.8); Chloride 106 mmol/L (96-109); Globulin 2.2 g/dL (1.6-3.3); Glucose 86 mg/dL (70-110); Magnesium 2.2 mg/dL (1.5-2.4); Potassium 4.3 mmol/L (3.5-5.5); Sodium 139 mmol/L (135-145); Total Bilirubin 0.7 mg/dL (0.3-1.2)
--- NOTE | 2023-12-24 14:06 | P.PN ---
Subjective Progress Note Date: 12/24/23 Hospital Course: 63-year-old male with history of COPD, hypertension, dyslipidemia presenting w ith small bowel obstruction. Vital signs, laboratory workup unremarkable. CT abdomen pelvis shows mid abdominal small bowel obstruction, possible transition point, mildly enlarged lymph node measuring nearly 1 cm in the region, likely reactive, sigmoid diverticulosis. Neurosurgery consulted. Subjective: Patient seen and examined at bedside. No acute events overnight. Abdominal pain slightly improved. Having bowel movements. Pertinent positives and negatives as discussed above, a complete review of systems was performed and all other systems are negative. Vitals Signs Reviewed. General: Nontoxic, no distress, appears at stated age Derm: Warm, dry Head: Atraumatic, normocephalic, symmetric Eyes: EOMI, no lid lag, anicteric sclera Mouth: No lip lesion, mucus membranes moist Cardiovascular: S1S2 reg, no murmur Lungs: CTA bilateral, no rhonchi, no rales, no accessory muscle use Abdominal: Soft, nontender to palpation, no guarding, no appreciable organomegaly Ext: No gross muscle atrophy, no edema, no contractures Neuro: CN II-XI grossly intact, no focal neuro deficits Psych: Alert, oriented, appropriate affect Data Reviewed Today: Pertinent Labs: WBC 5.86, hemoglobin 13.3, platelet 238, creatinine 1 Imaging: No new imaging Assessment and Plan: Active: Small bowel obstruction -General Surgery note reviewed, no surgical intervention, started on clear liquid diet -Pain control with IV Dilaudid as needed -Continue Protonix 40 IV twice daily Hypertension -Continue lisinopril-hydrochlorothiazide 20-12.5 daily Depression/mood disorder -Wellbutrin 300 mg daily, desvenlafaxine 100 mg daily -Seroquel 100 mg nightly Dyslipidemia -Lipitor 20 nightly COPD, without exacerbation -Continue albuterol every 6 hours as needed DVT ppx: Lovenox Code status: Full code Anticipated discharge place: Home Anticipated discharge time: likely tomorrow Objective - Vital Signs Vital signs: Vital Signs Temp 97.8 F 12/24/23 12:51 Pulse 72 12/24/23 12:51 Resp 18 12/24/23 12:51 BP 134/78 12/24/23 12:51 Pulse Ox 96 12/24/23 12:51 FiO2 Intake & Output 12/23/23 12/24/23 12/24/23 18:59 06:59 18:59 Intake Total 910 540 Balance 910 540 Weight 93.894 kg 93.894 kg Intake: Intake, IV Titration 910 Amount Sodium Chloride 0.9% 1, 910 000 ml @ 130 mls/hr IV . [id number] [facility] Rx#:[id number] Oral 540 Other: Voiding Method Toilet - Labs CBC & Chem 7: 12/24/23 03:36 12/24/23 03:36 Labs: Abnormal Lab Results - Last 24 Hours (Table) 12/23/23 12/23/23 12/24/23 Range/Units 15:44 16:47 03:36 RBC 4.39 L (4.40-5.60) X 10*6/uL Hct 39.3 L (39.6-50.0) % Calcium (8.7-10.3) mg/dL Magnesium 2.4 H (1.6-2.3) mg/dL Total Protein (6.2-8.2) g/dL Urine pH 8.5 H (5.0-8.0) Urine Protein 1+ H (Negative) Urine Ketones Trace H (Negative) Urine Mucus Many H (None) /hpf 12/24/23 Range/Units 03:36 RBC (4.40-5.60) X 10*6/uL Hct (39.6-50.0) % Calcium 8.6 L (8.7-10.3) mg/dL Magnesium (1.6-2.3) mg/dL Total Protein 6.0 L (6.2-8.2) g/dL Urine pH (5.0-8.0) Urine Protein (Negative) Urine Ketones (Negative) Urine Mucus (None) /hpf
[2023-12-24] MEDS: LISINOPRIL-HCTZ 20-12.5 MG 1 EACH TAB PO SCH (21:30)
[2023-12-24] MEDS: ATORVASTATIN 20 MG TAB PO SCH (21:30)
[2023-12-25] MEDS ORDERED: ONDANSETRON 4 MG/2 ML VIAL IVP PRN (09:42)
--- NOTE | 2023-12-25 10:57 | P.PN ---
Subjective Progress Note Date: 12/25/23 CHIEF COMPLAINT: Abdominal pain HISTORY OF PRESENT ILLNESS: Patient does complain of right sided abdominal pain and nausea after his clear liquid breakfast this morning. He is having flatus. Denies any bowel movement. He has been having issues with constipation. Afebrile. WBC 5.86 Patient seen and examined with Dr. Carey PHYSICAL EXAM: VITAL SIGNS: Reviewed. GENERAL: Well-developed in no acute distress. ABDOMEN: Soft. Nondistended. Mild tenderness right side of the abdomen NEUROLOGIC: Alert and oriented. Cranial nerves II through XII grossly intact. ASSESSMENT: 1. Possible partial small bowel obstruction versus ileus 2. Prior history of appendectomy PLAN: -CT scan abdomen pelvis with oral contrast ordered for further evaluation of patient's abdominal pain and nausea -Keep patient n.p.o. until CT scan results reviewed -Encourage patient to ambulate -Zofran as needed every 8 hours ordered for nausea Physician Nailing Machine Operator Automatic note has been reviewed by physician. Signing provider agrees with the documented findings, assessment, and plan of care. Objective - Vital Signs Vital signs: Vital Signs Temp 97.4 F L 12/25/23 07:50 Pulse 70 12/25/23 07:50 Resp 16 12/25/23 07:50 BP 157/75 12/25/23 07:50 Pulse Ox 96 12/25/23 07:50 FiO2 Intake & Output 12/24/23 12/25/23 12/25/23 18:59 06:59 18:59 Intake Total 1620 360 Balance 1620 360 Intake: Oral 1620 360 Other: Voiding Method Toilet Toilet # Voids 3 3 - Labs CBC & Chem 7: 12/24/23 03:36 12/24/23 03:36
[2023-12-25] MEDS: IOPAMIDOL CONTRAST (ORAL USE) VIAL PO PRN (11:59)
--- NOTE | 2023-12-25 14:04 | CT ---
EXAMINATION TYPE: CT abdomen pelvis wo con DATE OF EXAM: 12/25/2023 COMPARISON: 12/23/2023 HISTORY: 63-year-old male increase abd pain and nausea CT DLP: 599.2 mGycm. Automated exposure control for dose reduction was used. TECHNIQUE: Contiguous axial scanning of the abdomen and pelvis without IV contrast. Coronal and sagit murray reconstructions performed. FINDINGS: Heart normal size without pericardial effusion. Lung bases clear without pleural effusion. Tiny hiatal hernia. Noncontrast appearance of the liver, adrenal glands, kidneys, spleen with tiny anterior splenule, and pancreas within normal limits. Some high density material within the nondistended gallbladder, proba destiny vicarious excretion of contrast and from the biliary system.a A couple borderline to mildly enlarged gastrohepatic ligament lymph nodes measuring up to 1.1 cm. Minimal residual wall thickening of bowel within the right paramedian anterior mid abdomen, axial javan ge 54 and 50. Adjacent mesenteric nodule measuring 1.2 cm there are underlying lesion here is not exc luded. The bowel obstruction seen previously has resolved. No other mesenteric or retroperitoneal adenopathy seen. Mild stool burden. There is lower descending and sigmoid colonic diverticulosis. No pericolonic infla mmatory change. Circumferential bladder wall thickening. Prostate gland borderline in size at 4.0 cm wide. No abnorma l fluid collection in the pelvis or pelvic lymphadenopathy. Mild degenerative change of the hips. There is a left L5 hemisacralization. Moderate degenerative disc disease L2-L3 and L4-L5. Facet arthropathy mid to lower lumbar spine. [facility] lower thoracic spine. IMPRESSION: 1. Interval resolution of the patient's recent small bowel obstruction. Some minimal residual reacti ve small bowel wall thickening may remain in the anterior right mid abdomen at the site of previous o bstruction. 2. In addition, there is possible underlying mesenteric soft tissue lesion measuring 1.2 cm, axial i mage 50. Recommend careful, close CT surveillance follow-up. If any progressive enlarging soft tissue , the differential would include lymphoma, carcinoid tumor, and mesenteric desmoid as some possibilit ies. 3. Sigmoid diverticulosis without acute diverticulitis. 4. Circumferential bladder wall thickening. Correlate to exclude cystitis. [facility], , 12/25/2023 2:02 PM
--- NOTE | 2023-12-25 15:51 | P.PN ---
Subjective Progress Note Date: 12/25/23 Hospital Course: 63-year-old male with history of COPD, hypertension, dyslipidemia presenting w ith small bowel obstruction. Vital signs, laboratory workup unremarkable. CT abdomen pelvis shows mid abdominal small bowel obstruction, possible transition point, mildly enlarged lymph node measuring nearly 1 cm in the region, likely reactive, sigmoid diverticulosis. General surgery consulted. Due to ongoing abdominal pain, had a repeat abdomen pelvis CT which showed interval improvement of SBO, also noted to have possible underlying mesenteric soft tissue lesion measuring 1.2 cm, recommended close CT surveillance follow-up. Subjective: Patient seen and examined at bedside. No acute events overnight. Continues to have some abdominal pain. Pertinent positives and negatives as discussed above, a complete review of systems was performed and all other systems are negative. Vitals Signs Reviewed. General: Nontoxic, no distress, appears at stated age Derm: Warm, dry Head: Atraumatic, normocephalic, symmetric Eyes: EOMI, no lid lag, anicteric sclera Mouth: No lip lesion, mucus membranes moist Cardiovascular: S1S2 reg, no murmur Lungs: CTA bilateral, no rhonchi, no rales, no accessory muscle use Abdominal: Soft, diffusely tender to palpation, no guarding, no appreciable orga nomegaly Ext: No gross muscle atrophy, no edema, no contractures Neuro: CN II-XI grossly intact, no focal neuro deficits Psych: Alert, oriented, appropriate affect Data Reviewed Today: Pertinent Labs: No new labs Imaging: abdomen pelvis CT report reviewed, showed interval improvement of SBO, also noted to have possible underlying mesenteric soft tissue lesion measuring 1.2 cm, recommended close CT surveillance follow-up. Assessment and Plan: Active: Small bowel obstruction, resolved Continued abdominal pain -General Surgery note reviewed, recommending further imaging, which has shown resolved SBO -Now back on clear liquid diet -Pain control with IV Dilaudid as needed -Continue Protonix 40 IV twice daily Mesenteric soft tissue lesion -1.2 cm noted on abdominal pelvis CT, needs outpatient close surveillance Hypertension -Continue lisinopril-hydrochlorothiazide 20-12.5 daily Depression/mood disorder -Wellbutrin 300 mg daily, desvenlafaxine 100 mg daily -Seroquel 100 mg nightly Dyslipidemia -Lipitor 20 nightly COPD, without exacerbation -Continue albuterol every 6 hours as needed DVT ppx: Lovenox Code status: Full code Anticipated discharge place: Home Anticipated discharge time: likely tomorrow Objective - Vital Signs Vital signs: Vital Signs Temp 98.1 F 12/25/23 14:46 Pulse 82 12/25/23 14:46 Resp 14 12/25/23 14:46 BP 137/78 12/25/23 14:46 Pulse Ox 98 12/25/23 14:46 FiO2 Intake & Output 12/24/23 12/25/23 12/25/23 18:59 06:59 18:59 Intake Total 1620 360 Balance 1620 360 Intake: Oral 1620 360 Other: Voiding Method Toilet Toilet # Voids 3 3 - Labs CBC & Chem 7: 12/24/23 03:36 12/24/23 03:36
[2023-12-25 19:49] VITALS: RESP 16
--- NOTE | 2023-12-26 11:30 | P.PN ---
Subjective Progress Note Date: 12/26/23 CHIEF COMPLAINT: Abdominal pain HISTORY OF PRESENT ILLNESS: Patient does complain of right sided abdominal pain. No further nausea. He is having flatus. No bowel movement for a couple days. CT scan abdomen pelvis had reported interval resolution of patient's recent small bowel obstruction. Some minimal residual reactive small bowel wall thickening remaining in the anterior right mid abdomen at the site of previous obstruction. Possible underlying mesenteric soft tissue lesion measuring 1.[address] results were reviewed with Dr. Carey. Afebrile. Patient seen and examined with Dr. Carey PHYSICAL EXAM: VITAL SIGNS: Reviewed. GENERAL: Well-developed in no acute distress. ABDOMEN: Soft. Nondistended. Mild tenderness right side of the abdomen NEUROLOGIC: Alert and oriented. Cranial nerves II through XII grossly intact. ASSESSMENT: 1. Possible partial small bowel obstruction versus ileus. CT with interval resolution of patient's recent small bowel obstruction 2. Prior history of appendectomy PLAN: -Advance diet to full liquids -Patient can be discharged from surgical standpoint with outpatient follow-up -Recommending continuing full liquid diet for the next few days and then advancing diet as tolerated Physician Machine Steak Tenderizer note has been reviewed by physician. Signing provider agrees with the documented findings, assessment, and plan of care. Objective - Vital Signs Vital signs: Vital Signs Temp 97.5 F L 12/26/23 07:19 Pulse 61 12/26/23 07:19 Resp 16 12/26/23 07:19 BP 123/65 12/26/23 07:19 Pulse Ox 93 L 12/26/23 07:19 FiO2 Intake & Output 12/25/23 12/26/23 12/26/23 18:59 06:59 18:59 Intake Total 960 Balance 960 Intake: Oral 960 Other: # Voids 3 3 - Labs CBC & Chem 7: 12/24/23 03:36 12/24/23 03:36
[2023-12-26 12:33] VITALS: BP 125/79; PULSE 83; TEMP 97.8
--- NOTE | 2023-12-26 13:14 | P.DS ---
Providers Date of admission: 12/23/23 18:12 Expected date of discharge: 12/26/23 Attending physician: Gee Jimenez MD Consults: 12/23/23 18:01 Consult Physician Routine Consulting Provider: Kip Carey Consult Reason/Comments: SBO, abdominal pain Do you want consulting provider notified?: Yes, Notify in am [facility] Hospital Course: Discharge Diagnosis: Small bowel obstruction Mesenteric soft tissue lesion Hypertension Depression/mood disorder Dyslipidemia COPD, without exacerbation Hospital Course: 63-year-old male with history of COPD, hypertension, dyslipidemia presenting with small bowel obstruction. Vital signs, laboratory workup unremarkable. CT abdomen pelvis shows mid abdominal small bowel obstruction, possible transition point, mildly enlarged lymph node measuring nearly 1 cm in the region, likely reactive, sigmoid diverticulosis. General surgery consulted. Due to ongoing abdominal pain, had a repeat abdomen pelvis CT which showed interval improvement of SBO, also noted to have possible underlying mesenteric soft tissue lesion measuring 1.2 cm, recommended close CT surveillance follow-up. Bowel function recovered. Patient tolerating oral intake well. He will continue liquid diet for the next few days and then changed to regular diet as tolerated. Follow-up with general surgery outpatient. Patient seen and examined at bedside. Vital signs reviewed and stable. General: Nontoxic, no distress, appears at stated age Derm: Warm, dry Head: Atraumatic, normocephalic, symmetric Eyes: EOMI, no lid lag, anicteric sclera Mouth: No lip lesion, mucus membranes moist Cardiovascular: S1S2 reg, no murmur Lungs: CTA bilateral, no rhonchi, no rales, no accessory muscle use Abdominal: Soft, mild tender to palpation in the right upper quadrant, no guarding, no appreciable organomegaly Ext: No gross muscle atrophy, no edema, no contractures Neuro: CN II-XI grossly intact, no focal neuro deficits Psych: Alert, oriented, appropriate affect A total of 35 minutes of time were spent preparing this complex discharge summary. Patient was discharged on 12/26/2023 at 1312. Patient Condition at Discharge: Stable Plan - Discharge Summary Discharge Rx Participant: No New Discharge Prescriptions: Continue Albuterol Inhaler [Ventolin Hfa Inhaler] 2 puff INHALATION RT-Q6H PRN PRN Reason: Shortness Of Breath EPINEPHrine [Epipen 2-Melchor] 0.3 mg IM ONCE PRN #1 ml PRN Reason: Anaphylaxis Desvenlafaxine Succinate [Pristiq] 100 mg PO DAILY QUEtiapine [SEROquel] 100 mg PO HS Atorvastatin [Lipitor] 20 mg PO HS buPROPion HCL [Wellbutrin XL] 300 mg PO DAILY polyethylene glycoL 3350 [Miralax] 17 gm PO DAILY 30 Days #30 packet Lisinopril-Hctz 20-12.5 mg [Zestoretic 20-12.5] 1 tab PO HS Discharge Medication List Albuterol Inhaler [Ventolin Hfa Inhaler] 2 puff INHALATION RT-Q6H PRN 10/19/13 [History] EPINEPHrine [Epipen 2-Melchor] 0.3 mg IM ONCE PRN #1 ml 10/20/13 [Rx] Atorvastatin [Lipitor] 20 mg PO HS 04/07/21 [History] Desvenlafaxine Succinate [Pristiq] 100 mg PO DAILY 04/07/21 [History] QUEtiapine [SEROquel] 100 mg PO HS 04/07/21 [History] buPROPion HCL [Wellbutrin XL] 300 mg PO DAILY 04/07/21 [History] polyethylene glycoL 3350 [Miralax] 17 gm PO DAILY 30 Days #30 packet 12/04/23 [Rx] Lisinopril-Hctz 20-12.5 mg [Zestoretic 20-12.5] 1 tab PO HS 12/23/23 [History] Follow up Appointment(s)/Referral(s): Julio Cesar Ward MD [Primary Care Provider] - 1-2 days Kip Carey MD [STAFF PHYSICIAN] - 01/02/24 Patient Instructions/Handouts: Bowel Obstruction (DC) Activity/Diet/Wound Care/Special Instructions: Continue a Full liquid diet over the next few days and then advance as tolerated Discharge Disposition: HOME SELF-CARE
== END 2023-12-26 14:56 | disposition home or self-care (01) | DRG 390 ==
LOC: EC 15:07 → 5NMEDONC 18:12
PROVIDERS: ADMIT Family Medicine; ATTEND Family Medicine
DX: K56.609 Unspecified intestinal obstruction, unspecified as to partial versus complete obstruction (principal); I10 Essential (primary) hypertension; E78.5 Hyperlipidemia, unspecified; F32.A Depression, unspecified; Z87.891 Personal history of nicotine dependence; J44.9 Chronic obstructive pulmonary disease, unspecified; Z79.899 Other long term (current) drug therapy; Z90.49 Acquired absence of other specified parts of digestive tract
CPT/HCPCS: 36415; 51798; 74176; 74177; 80053; 81001; 82150; 83605; 83690; 83735; 85025; 96374; 99285

== ENCOUNTER → 2024-01-23 | Outpatient (CLI) | payer MEDICARE ==
[2024-01-23 14:30] LABS: African American GFR (CKD) >90 (>60 ml/min/1.73 sqM); Blood Urea Nitrogen 15 mg/dL (9-20); Non-African American GFR(CKD) >90 (>60 ml/min/1.73 sqM)
--- NOTE | 2024-01-23 16:52 | CT ---
EXAMINATION TYPE: CT abdomen pelvis w con CT DLP: 998.6 mGycm, Automated exposure control for dose reduction was used. 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 Coronal and sagittal reformats were performed. FINDINGS: LOWER CHEST: Unremarkable ABDOMEN LIVER: Unremarkable GALLBLADDER AND BILE DUCTS: Contracted gallbladder. No biliary duct dilatation. PANCREAS: Unremarkable. SPLEEN: Unremarkable. ADRENAL GLANDS: Unremarkable. KIDNEYS AND URETERS: No evidence of hydronephrosis or renal calculus. The kidneys enhance symmetrical ly. Contrast is demonstrated within both collecting systems on the delayed phase. PELVIS BLADDER: Unremarkable REPRODUCTIVE: Unremarkable. ABDOMEN & PELVIS STOMACH AND BOWEL: Tiny hilar hernia. Scattered distal colonic diverticulosis without evidence for ac nightmute diverticulitis. Enteric contrast reaches the distal small bowel. There is focal circumferential w all thickening of the small bowel within the right paramedian anterior midabdomen with adjacent linea r type soft tissue measuring 2.4 x 0.8 cm. (Series 3, image 53). Mild tethered type appearance. No ev idence of bowel obstruction. PERITONEUM: No evidence of pneumoperitoneum or free fluid. VASCULATURE: Mild atherosclerotic calcifications are present throughout the abdominal aorta and its b ranches. No evidence of aortic aneurysm. MUSCULOSKELETAL: No acute osseous abnormalities. Mild degenerative changes of the hips. Left L5 hemis acralization. Moderate multilevel degenerative disease at L2-L3 and L4-L5. Facet arthropathy mid to l ower lumbar spine. [facility] lower thoracic spine. LYMPH NODES: Stable mildly prominent gastrohepatic lymph nodes measuring 9 mm short axis. Please refe rred to above for mesenteric lymphadenopathy description. SOFT TISSUE/ABDOMINAL WALL: Unremarkable IMPRESSION: 1. Short segment circumferential wall thickening of the mid right small bowel at site of previous ob struction. Similar adjacent linear soft tissue within the mesentery with tether-type appearance to th e bowel. Findings are suspicious for possible benign or malignant neoplasms such as lymphoma, carcino id tumor, or mesenteric tumor versus other. No evidence for obstruction at this time. Further workup is recommended. 2. Nonspecific mildly prominent gastrohepatic lymph nodes. May be reactive versus related to #1. 3. Colonic diverticulosis. [facility], , 01/23/2024 4:49 PM
== END ==
LOC: RADCTMAIN 13:52
PROVIDERS: ATTEND Surgery
DX: I88.0 Nonspecific mesenteric lymphadenitis
CPT/HCPCS: 36415; 74177; 82565; 84520